=== PATIENT | male | born 1965 | race Caucasian/White ===

== ENCOUNTER 2020-05-16 23:16 | Observation (INO) | payer MEDICARE, MEDICAID, SELFPAY ==
--- NOTE | ~2020-05-16 | CT_ITS ---
EXAMINATION: CT brain wo con DATE: 05/17/2020 11:09 INDICATION: Headache. Alcohol withdrawal. TECHNIQUE: Computed tomography (CT) of the head was performed without intravenous contrast. The mA wa s adjusted according to patient size. Iterative reconstruction technique was employed. The dose-lengt h product was 605.33 mGy-cm. COMPARISON: Head CT 11/12/2014 FINDINGS: There is no intracranial hemorrhage, acute infarction, or abnormal intracranial mass lesion . The ventricles are normal in size. There are old blowout fractures of the medial jason of the orbit s. There are old fracture deformities of the nasal bones and left nasal process of maxilla. There is mild mucosal thickening in the ethmoid sinuses. The mastoid air cells are normal. IMPRESSION: 1. Normal brain. Reviewed, dictated and finalized at location B. OR NUCLEAR MEDICINE TECHNOLOGIST IMPRESSION: 1. Normal brain.
--- NOTE | ~2020-05-16 | US_ITS ---
EXAMINATION: US venous doppler LE EXAM DATE: 05/17/2020 10:35 INDICATION: Elevated d-dimer. Shortness of breath. TECHNIQUE: Multiple grayscale, color flow and Doppler images of the lower extremity deep venous syste ms bilaterally were obtained and reviewed. There is no prior study for comparison. FINDINGS: Right side: The right common femoral, femoral and profunda veins demonstrate normal color flow, respi ratory variation, augmentation and compressibility. Compressibility, color flow confirmed within the right popliteal, posterior tibial, peroneal, and greater saphenous veins. Left side: The left common femoral, femoral and profunda veins demonstrate normal color flow, respira tory variation, augmentation and compressibility. Compressibility, color flow confirmed within the l eft popliteal, posterior tibial, peroneal, and greater saphenous veins. IMPRESSION: 1. No lower extremity deep venous thrombosis bilaterally. Reviewed, dictated and finalized at location A. SCROLL SAW OPERATOR
--- NOTE | ~2020-05-16 | XR_ITS ---
XR chest 2V DATE: 05/17/2020 00:14 INDICATION: Shortness of breath, midline chest pain TECHNIQUE: AP and lateral views COMPARISON: 02/16/2015 portable AP chest FINDINGS: There is bilateral hyperinflation suggesting COPD. No pulmonary infiltrate or consolidation, pleural effusion or pulmonary vascular congestion or pneumo thorax. Normal heart size. No hilar or mediastinal enlargement. Mild levoscoliosis of the thoracic spine. IMPRESSION: Bilateral hyperinflation; no active cardiopulmonary disease Reviewed, dictated and finalized at location A. ATTENDANT
--- NOTE | ~2020-05-16 | CT_ITS ---
EXAMINATION: CTA chest PE protocol EXAM DATE: 05/17/2020 00:25 INDICATION: Chest pain, shortness of breath. TECHNIQUE: Spiral CTA of the chest (pulmonary arteries) was performed with 100 cc Omnipaque 350 intr avenous contrast injection. Images were acquired during the pulmonary arterial phase. Coronal maxi mum intensity projection 3D-reconstructions were created by the technologist on dedicated workstation . Axial, coronal and sagittal reformatted images were reviewed. The dose-length product (DLP) for t his examination was 408.39 mGy-cm. The exposure was tailored according to patient size (auto mA exp osure control), and iterative reconstruction (ASIR) was used as additional dose reduction technique. There is no prior study for comparison. FINDINGS: There is severe esophageal thickening for its entire mid and distal segments, extent sugges ts most likely acute esophagitis. No pulmonary emboli. No thoracic aortic dissection. The lungs are clear. There are no pleural or pericardial effusions. Tracheobronchial tree is patent. There i s no mediastinal, hilar or axillary lymphadenopathy. There is no pneumothorax. Heart normal in si ze. There is mild coronary arterial calcification, arterial sclerosis. Upper abdomen is unremarkab le. There is thoracic spondylosis without osteoblastic or osteolytic lesions identified. IMPRESSION: 1. Severe esophagitis. 2. No pulmonary emboli or acute airspace disease. Reviewed, dictated and finalized at location A. NSIVE CARE NURSE
[2020-05-16 23:13] VITALS: BP 142/105; PULSE 113; RESP 14; TEMP 36.9; O2SAT 92
--- NOTE | 2020-05-16 23:20 | ECG_ITS ---
Measurements Intervals [place] Rate: 112 P: 57 MA: 163 QRS: 37 QRSD: 96 T: 71 QT: 332 QTc: 455 Interpretive Statements SINUS TACHYCARDIA ABNORMAL ECG Electronically Signed On 05-17-2020 8:10:01 GI PHYSICIAN by Puneet Hinton D.O.
[2020-05-16 23:21] VITALS: PULSE 114; RESP 15
[2020-05-16 23:30] VITALS: PULSE 115; RESP 14; O2SAT 98; O2SAT 99
[2020-05-16 23:40] VITALS: BP 134/95; PULSE 112; RESP 17; O2SAT 96
[2020-05-16 23:45] VITALS: PULSE 111; RESP 14; O2SAT 100
--- NOTE | 2020-05-16 23:45 | PC.NURSE ---
Pt reports to RN I have not had a drink since 10 am. I had a half pint of vodka, there is no way I dont detox tonight. I am more than likely going to have a sz. I am going to need ativan or librium. Are you in with the doctor? Can you get me ativan? RN informed pt I would ask the doctor and see what happens. Pt. repeatedly asking RN if I am in with the doctor and can get him some ativan.
[2020-05-16 23:50] LABS: Basophils Absolute Auto 0.1 K/mm3 (0.0-0.1); Basophils Percent Auto 0.7 % (0.2-1.2); Eosinophils Percent Auto 0.2 % (0-4.4); Hematocrit 51.3 % (42.0-52.0); Hemoglobin 16.6 g/dL (14.0-18.0); Immature Granulocyte Absolute 0.05 K/mm3 (0.00-0.031); Immature Granulocyte Percent A 0.5 % (0-0.5); Lymphocytes Absolute Auto 2.58 K/mm3 (0.9-3.2); Lymphocytes Percent Auto 25.2 % (18.3-44.2); Mean Corpuscular HGB Conc 32.4 g/dl (32-36); Mean Corpuscular Hemoglobin 27.2 pg (26-34); Mean Corpuscular Volume 84.1 fl (80-100); Mean Platelet Volume 8.5 fl (7.4-10.4); Monocytes Absolute Auto 0.5 K/mm3 (0.1-0.6); Monocytes Percent Auto 5.3 % (2.6-8.5); Neutrophils Percent Auto 68.1 % (45.5-73.1); Platelet Count Result 224 k/mm3 (150-375); White Blood Count 10.2 K/mm3 (4.5-10.0)
[2020-05-17] VITALS (28 sets, daily range): BP systolic 104–147; BP diastolic 56–89; PULSE 85–129; RESP 13–33; TEMP 36–37.5; O2SAT 92–100; BMI 28.3; BMI 32.9
[2020-05-17 00:01] LABS: INR 0.9; Prothrombin Time 12.9 Seconds (11.1-14.7)
[2020-05-17 00:02] LABS: Partial Thromboplastin Time 28.5 SECONDS (22.3-36.8)
[2020-05-17 00:03] LABS: Anion Gap 16 mmol/L (8-16); Blood Urea Nitrogen 5 mg/dL (9-20); Calcium 9.6 mg/dL (8.4-10.2); Carbon Dioxide 34 mmol/L (22-30); Chloride 94 mmol/L (98-107); Estimated Glomerular Filt Rate > 60; Glucose 145 mg/dL (75-110); Potassium 3.2 mmol/L (3.4-5.0); Sodium 144 mmol/L (137-145)
[2020-05-17] MEDS: NITROGLYCERIN OINTMENT 1 INCH DOSE TRANSDERM (00:03)
[2020-05-17] MEDS: LORazepam (*CRX) 1 MG TABLET PO (00:03)
[2020-05-17 00:04] LABS: D Dimer 2.43 ug/mL (<0.48)
--- NOTE | 2020-05-17 00:06 | ED.CHESTPAIN ---
HPI - Chest Pain General Chief Complaint: Chest Pain Stated Complaint: CP Time Seen by Provider: 05/16/20 23:19 Source: patient Mode of arrival: ambulatory Limitations: no limitations History of Present Illness HPI narrative: Patient is a 54-year-old male complaining of chest pain, left chest, nonradiating, 7 out of 10, pressure that started yesterday. Patient also states that she is short of breath but it is nothing new since he has a history of COPD. Denies any fever, abdominal pain, nausea vomiting or diaphoresis. Admits to using cocaine few days ago. Related Data Allergies Allergy/AdvReac Type Severity Reaction Status Date / Time tomato Allergy Unknown Anaphylaxis Unverified 05/16/20 23:59 Review of Systems Review of Systems: All systems reviewed & are unremarkable except as noted in HPI and below Constitutional: Constitutional: Denies body ache(s), Denies chills, Denies excessive sweating, Denies fatigue, Denies fever(s), Denies headache(s), Denies lethargy, Denies malaise, Denies weakness and Denies weight loss Eyes: Eyes: Denies blurry vision, Denies change in vision and Denies loss of vision ENT: Denies dizziness, Denies ear discharge, Denies headache(s), Denies lip swelling, Denies epistaxis, Denies nasal congestion, Denies neck pain, Denies throat swelling and Denies tongue swelling Cardiovascular: Cardiovascular: Denies chest pain, Denies chest pain at rest, Denies chest pain with activity, Denies diaphoresis, Denies rapid heart rate, Denies edema, Denies irregular heart rhythm, Denies lightheadedness, Denies palpitations, Denies dyspnea and Denies dyspnea on exertion Respiratory: Respiratory: Denies chest congestion, Denies cough, Denies hemoptysis, Denies dyspnea and Denies dyspnea on exertion Gastrointestinal: Gastrointestinal: Denies abdominal pain, Denies melena, Denies hematochezia, Denies diarrhea, Denies nausea, Denies vomiting and Denies hematemesis Musculoskeletal: Musculoskeletal: Denies abnormal gait, Denies deformity, Denies joint swelling, Denies limited range of motion, Denies neck pain and Denies numbness Neurologic: Denies Abnormal speech present, Denies abnormal gait, Denies confusion, Denies dizziness, Denies headache(s), Denies focal weakness, Denies loss of vision, Denies numbness, Denies Other visual disturbances, Denies Sensory deficit (Neuro) and Denies weakness Psychiatric: Psychiatric: Denies confusion, Denies depression, Denies auditory hallucinations, Denies homicidal ideation and Denies suicidal ideation Endocrine: Endocrine: Denies cold intolerance, Denies excessive sweating, Denies fatigue, Denies heat intolerance and Denies palpitations Hematologic/Lymphatic: Hematologic/Lymphatic: Denies easy bleeding and Denies easy bruising Allergic/Immunologic: Allergic/Immunologic: Denies lip swelling, Denies throat swelling and Denies tongue swelling Exam Const: General: cooperative, healthy appearing, comfortable, no acute distress, well developed, alert and awake; No confusion Orientation/consciousness: oriented to person, oriented to place, oriented to time, patient oriented x3 and No confusion Limitations: no limitations HENMT: Head: normal to inspection, normocephalic and atraumatic Ears: hearing grossly normal bilaterally, TM normal on the right and TM normal on the left General nose exam: Normal external nose present, Normal nares present and No nasal discharge present Face and sinus: normal facial exam Mouth: Yes Normal oral and palatal mucosa present, Yes lip normal, Yes tongue normal and Yes oropharynx normal Throat: posterior oropharynx normal, tonsils normal and uvula midline Eyes: General: appearance normal, both eyes and all related structures Pupils: Equal, round and reactive pupils present EOM: EOMs intact bilaterally Neck: Neck: normal visual inspection, full ROM, no lymphadenopathy and no meningeal signs Chest: Chest palpation & inspection: normal inspection of the chest Resp
--- NOTE | 2020-05-17 00:12 | PC.NURSE ---
Pt. access in w/ patient. This RN heard pt. ask pt. access So you are registration, and there is no way you are in with the doctor? Do you think you could get me some ativan? RN informed pt. that the doctor ordered medication for him and it would be administered momentarily.
[2020-05-17 00:17] LABS: Troponin I < 0.012 ng/mL (0.000-0.034)
[2020-05-17] MEDS: LORazepam INJ (*CRX) 2 MG/ML VIAL 1 MG IV PUSH (01:49)
[2020-05-17] MEDS: SODIUM CHLORIDE 0.9% IV 1,000 ML 999 ML IV CONT (01:51)
[2020-05-17] MEDS: PROMETHAZINE HCL 25 MG/ML AMPUL 12.5 MG IV PUSH (01:52)
[2020-05-17 02:44] LABS: Troponin I < 0.012 ng/mL (0.000-0.034)
--- NOTE | 2020-05-17 02:50 | ADMGEN ---
This patient, Migue Hernández, was admitted to IMU Room 204-01. Patient/family oriented to hospital policies and general routines including ID bracelet, bed and alarms, visiting hours, pain management, procedures, bathroom and other care routines, personal items, smoking policy, room service/diet, and visiting hours. Information on how to activate the Rapid Response Team has been discussed. Patient/Family are encouraged to report perceived risks to care and to ask questions if they do not understand what they are told or what they should do.
[2020-05-17] MEDS: SODIUM CHLORIDE 0.9% IV 1,000 ML 150 ML IV CONT ×3 (03:18→23:22)
[2020-05-17 06:04] LABS: Troponin I < 0.012 ng/mL (0.000-0.034)
--- NOTE | 2020-05-17 07:56 | PM.IMHP ---
H&P: HPI History of Present Illness Date/Time: 05/17/20 07:56 Chief complaint: Chest Pain, N/V, Cocaine Abuse Narrative: Migue Hernández is a 54 year old male admitted due to chest pain and shortness of breath. He started experiencing this yesterday afternoon when he was carrying multiple loads of laundry at home. Today upon examination his chest pain is located within the left anterior chest wall, it is not aggravated with arm or shoulder movement, non-radiating, and worsens with activity. He is on room air and is not requiring oxygen, has not been short of breath during conversation or dyspneic when ambulating to the bathroom. He states when he is at rest in bed the pain is as low as 2/10 but then worsens with any activity including walking to the restroom to at least an 8 or 9/10. He has no history of known coronary artery disease, no history of a coronary catheterization, no history of PE or DVTs, and he has never seen a display department manager. Ordered cardiology consultation. His D-dimer was elevated at 2.43, INR 0.9, started therapeutic Lovenox every 12 hours. CTA showed severe esophagitis, with severe thickening, but no PE and no dissection, no pneumo, and lungs clear. Troponins x3 have been normal. His chest x-ray showed bilateral hyperinflation. White count last night was 10.2, no fevers noted. His EKG upon admission was sinus tach, word will repeat an EKG today. Upon review of monitoring specialist there has been no ectopy, sinus tach at a rate of 100-115. Migue does admit to experiencing alcohol withdrawal, stated that he was trying to withdrawal from alcohol at home on his own. His last known alcohol beverage was Thursday. He started withdrawing on Thursday at home. He stated that he had been having multiple episodes of vomiting and diarrhea at home due to his alcohol withdrawal. He stated that he was using Mylanta frequently at home. Denies any blood in his stools or his urine. He has had a seizure in the past during alcohol withdrawal. No known seizure activity noted at this time. Ordered Head CT and DVT dopplers of lower extremities. Started CIWA precautions, his magnesium=1.8 and phosphorus =2.8, and his potassium of 3.2 was replenished with oral. Ordered IV Protonix and IV Pepcid, p.r.n. oral Tums, and IV Zofran p.r.n.. Will advance diet as tolerated to bland. Currently no nausea or vomiting or diarrhea noted at this time. Consider GI consult if patient restarts N/V/D or if stool cultures are concerning. Review of Systems Review of Systems: All systems reviewed & are unremarkable except as noted in HPI and below Constitutional: Constitutional: Reports as per HPI, Reports body ache(s), Denies chills, Denies excessive sweating, Denies fatigue, Denies fever(s), Reports headache(s), Reports lethargy, Reports malaise, Denies weakness and Denies weight loss Eyes: Eyes: Reports as per HPI, Denies blurry vision, Denies change in vision and Denies loss of vision ENT: Reports system reviewed and no additional complaints, except as documented, Reports as per HPI, Denies dizziness, Denies ear discharge, Denies headache(s), Denies lip swelling, Denies epistaxis, Denies nasal congestion, Denies neck pain, Denies throat swelling and Denies tongue swelling Cardiovascular: Cardiovascular: Reports as per HPI, Reports chest pain, Reports chest pain at rest, Reports chest pain with activity, Denies diaphoresis, Reports rapid heart rate, Denies edema, Denies irregular heart rhythm, Denies lightheadedness, Denies palpitations, Denies dyspnea, Denies dyspnea on exertion, Denies orthopnea and Denies paroxysmal nocturnal dyspnea Respiratory: Respiratory: Reports as per HPI, Denies chest congestion, Denies cough, Denies hemoptysis, Denies pain on inspiration, Denies pain with cough, Denies dyspnea and Denies dyspnea on exertion Gastrointestinal: Gastrointestinal: Reports as per HPI, Denies abdominal pain, Denies melena, Denies hematochezia, Reports change in stool character, Den
[2020-05-17 08:38] LABS: Magnesium 1.8 mg/dL (1.6-2.3); Phosphorus 2.8 mg/dL (2.5-4.5)
[2020-05-17] MEDS: chlordiazePOXIDE (*CRX) 10 MG CAPSULE PO ×4 (09:33→13:41)
[2020-05-17] MEDS: ENOXAPARIN 100 MG/ML SYRINGE 85 MG SUB-Q (09:33)
[2020-05-17] MEDS: PANTOPRAZOLE SODIUM IV 40 MG VIAL IV PUSH (09:34)
[2020-05-17] MEDS: FAMOTIDINE 20 MG/2 ML VIAL IV PUSH ×2 (09:34→21:04)
[2020-05-17] MEDS: POTASSIUM CHLORIDE 20 MEQ TABLET.ER 40 MEQ PO ×2 (10:16→18:59)
[2020-05-17 10:26] LABS: Alanine Aminotransferase 61 U/L (4-50); Albumin Level 3.6 g/dL (3.5-5.1); Alkaline Phosphatase 79 U/L (38-126); Aspartate Amino Transferase 63 U/L (17-59); Bilirubin,Total 0.7 mg/dL (0.2-1.3)
[2020-05-17 10:41] LABS: Lipase 55 U/L (23-300)
--- NOTE | 2020-05-17 11:28 | PM.CNCAR ---
Assessment and Plan Assessment and plan (1) Chest pain: Qualifiers: Chest pain type: unspecified Qualified Code(s): R07.9 - Chest pain, unspecified Code(s): R07.9 - Chest pain, unspecified Status: Acute Assessment and Plan: Atypical, constant for several days worse with palpation, deep breathing, cough and activity. Negative troponin x3. EKG without ischemic changes. Suspect musculoskeletal and/or GI etiology having presented with onset associated with nausea vomiting and evidence of severe esophagitis on CT. No PE. - Discontinue systemic anticoagulation. - DVT prophylaxis. - 2D echocardiogram. Tachycardia likely secondary to ETOH withdrawal, pain. Will further assess for LV function, valve pathology pulmonary pressures. No evidence for acute pericardial inflammatory process by exam, EKG or clinical history. - No indication for ischemic evaluation at this time. - If echocardiogram without significant pathology will see patient on an as-needed basis. Please do not hesitate to contact us with any additional questions or concerns. Recommendation to follow after review of echocardiogram as appropriate. (2) Alcohol abuse: Code(s): F10.10 - Alcohol abuse, uncomplicated Status: Acute Assessment and Plan: alcohol/ drug rehabilitation, abstinence. Per primary service. Drug and alcohol screen pending. Withdrawal management/observation per primary service. (3) Esophagitis: Code(s): K20.90 - Esophagitis, unspecified without bleeding Status: Acute Assessment and Plan: Per primary service. PPI. GI consultation. (4) Shortness of breath: Code(s): R06.02 - Shortness of breath Status: Acute Assessment and Plan: Patient with intermittent productive cough. Suspect underlying COPD. He is not in decompensated heart failure. (5) Nausea & vomiting: Qualifiers: Vomiting Intractability: non-intractable Vomiting type: unspecified Qualified Code(s): R11.2 - Nausea with vomiting, unspecified Code(s): R11.2 - Nausea with vomiting, unspecified Status: Acute Assessment and Plan: Resolved. lipase unremarkable, mild LFT elevation. (6) Nicotine dependence: Code(s): F17.200 - Nicotine dependence, unspecified, uncomplicated Status: Acute Assessment and Plan: Smoking cessation counseling (7) HTN (hypertension), benign: Code(s): I10 - Essential (primary) hypertension Status: Acute Assessment and Plan: Stable. History of Present Illness History of Present Illness Consult date/time: date of service: 05/17/20 11:28 This is a cardiology consultation at the request of Kristen Robin NP for our opinion regarding complaints of chest pain. Requesting physician: Kristen Robin NP Consult reason: chest pain Reason For Visit: Chest Pain, N/V, Cocaine Abuse Narrative: Patient is a 54-year-old male with a past medical history significant for alcohol abuse, reported hypertension who presented to the emergency depart with complaints of several days of left-sided chest pain worse with movement, deep breathing, coughing which began after excessive nausea vomiting prior to admission. Patient has chest pain feels like a pressure and/or intermittent sharpness radiating to the left arm that has been constant for least the past 3 days. He does not admit to exacerbation with walking unless he is caring an object. He admits to exertional dyspnea, intermittent cough but denies fevers, chills or recent illnesses. Patient states he has been drinking 4-5 fifths and one case of beer daily and more heavily of late. He smokes 1 pack cigarettes daily but denies illicit substance abuse. In the ER D-dimer was noted to be elevated. CT angiogram revealed no PE, dissection or pneumonia. There was severe esophagitis with associated severe thickening however. Serial troponins have been negative x3 and h
[2020-05-17] MEDS: NICOTINE (*PBKC) 14 MG PATCH 1 PATCH TRANSDERM (13:38)
[2020-05-17] MEDS: ONDANSETRON INJ 4 MG/2 ML VIAL IV PUSH (13:41)
--- NOTE | 2020-05-17 14:00 | ECG_ITS ---
Measurements Intervals [place] Rate: 101 P: 57 MI: 145 QRS: 72 QRSD: 84 T: 70 QT: 352 QTc: 458 Interpretive Statements SINUS TACHYCARDIA BORDERLINE ECG Electronically Signed On 05-17-2020 14:59:15 WIRE BRUSHER by Puneet Hinton D.O.
[2020-05-17] MEDS: VENLAFAXINE HCL XR 75 MG CAP.ER.24H 150 MG PO (18:58)
[2020-05-17] MEDS: chlordiazePOXIDE (*CRX) 25 MG CAPSULE PO (18:58)
[2020-05-17] MEDS: QUEtiapine FUMARATE 100 MG TABLET PO (18:59)
[2020-05-17 19:18] LABS: Add Urine Microscopic? YES; Appearance Urine Cloudy (Clear); Bacteria Urine Trace /hpf; Bilirubin Urine Negative (Negative); Blood Urine Negative (Negative); Color Urine Amber (Yellow); Glucose Urine UA Negative (Negative); Ketones Urine Trace mg/dL (Negative); Leukocyte Esterase Ur Negative LEU/UL (Negative); Mucus Urine Heavy /lpf; Nitrate Urine Negative (Negative); Protein Urine 1+ mg/dL (Negative); RBC Urine 0-2 /hpf (0-2); Specific Grav Ur 1.028 (1.001-1.035); Squamous Epithelial Cell Urine Rare /hpf (Few); WBC Urine 0-3 /hpf
[2020-05-17 19:48] LABS: Barbiturate Screen Urine Negative (Negative); Benzodiazepines Screen Urine Positive (Negative)
[2020-05-17 19:50] LABS: Amphetamine Screen Urine Negative (Negative); Cannabinoid Screen Urine Negative (Negative); Cocaine Screen Urine Negative (Negative); Methadone Screen Urine Negative (Negative); Opiate Screen Urine Negative (Negative); Phencyclidine Screen Urine Negative (Negative)
[2020-05-17 20:49] LABS: IFOB Positive Control Positive; Immunochemical Fecal Occult Bl Negative (N)
[2020-05-18] VITALS (8 sets, daily range): BP systolic 111–130; BP diastolic 69–85; PULSE 73–100; RESP 13–18; TEMP 36–36.6; O2SAT 94–98
[2020-05-18] MEDS: chlordiazePOXIDE (*CRX) 25 MG CAPSULE PO (03:32)
[2020-05-18 05:52] LABS: Hematocrit 36.4 % (42.0-52.0); Hemoglobin 11.5 g/dL (14.0-18.0); Mean Corpuscular HGB Conc 31.6 g/dl (32-36); Mean Corpuscular Hemoglobin 27.6 pg (26-34); Mean Corpuscular Volume 87.5 fl (80-100); Mean Platelet Volume 9.4 fl (7.4-10.4); Platelet Count Result 134 k/mm3 (150-375); Red Blood Count 4.16 M/mm3 (4.6-6.20); Red Cell Distribution Width 15.3 % (11.5-14.5)
[2020-05-18] MEDS: chlordiazePOXIDE (*CRX) 25 MG CAPSULE 50 MG PO ×2 (05:52→12:41)
[2020-05-18] MEDS: SODIUM CHLORIDE 0.9% IV 1,000 ML 150 ML IV CONT (05:53)
[2020-05-18 06:22] LABS: Anion Gap 3 mmol/L (8-16); Bilirubin,Total 1.4 mg/dL (0.2-1.3); Carbon Dioxide 31 mmol/L (22-30); Chloride 103 mmol/L (98-107); Estimated CRCL calculation 141 ml/min; Estimated Glomerular Filt Rate > 60; Potassium 3.2 mmol/L (3.4-5.0); Sodium 137 mmol/L (137-145)
[2020-05-18 06:28] LABS: Alanine Aminotransferase 38 U/L (4-50); Alkaline Phosphatase 70 U/L (38-126); Aspartate Amino Transferase 35 U/L (17-59); Blood Urea Nitrogen 5 mg/dL (9-20); Calcium 7.4 mg/dL (8.4-10.2); Glucose 94 mg/dL (75-110)
--- NOTE | 2020-05-18 09:02 | ECHO_ITS ---
Patient Info Name: Migue Hernández Age: 54 years : 1965 Gender: Male Ht: 64 in Wt: 184 lbs BSA: 1.97 m2 HR: 96 bpm BP: 111 / 73 mmHg Heart Rhythm: Sinus Rhythm Technical Quality: Good Exam Date: 05/18/2020 10:44 AM Exam Location: [facility] Pul[facility] Patient Status: Inpatient Admit Date: 05/17/2020 Staff Ordering Physician: Grayson Rasmussen MD Recruiting Internship: Anni Willams RDCS Attending Provider: Ulysses Ramos MD Referring Physician: Grady BALLESTEROS; Exam Type: CA echo doppler color flow Study Info Indications R07.9 - Chest pain, unspecified Complete two-dimensional, color flow and Doppler transthoracic echocardiogram is performed. Summary 1. Complete two-dimensional, color flow and Doppler transthoracic echocardiogram is performed. 2. Left ventricular chamber dimension is normal. 3. Left ventricular systolic function is normal, estimated at 65-70%. 4. No valvular pathology. Left Ventricle Left ventricular chamber dimension is normal. Left ventricular systolic function is normal, estimated at 65-70%. The left ventricular diastolic function is grade I diastolic dysfunction. Right Ventricle Right ventricular chamber dimension is normal. Left Atria Left atrial chamber dimension is normal. Right Atria Right atrial chamber dimension is normal. Aortic Valve The aortic valve is normal. Pulmonic Valve The pulmonic valve is not well visualized. Mitral Valve The mitral valve has normal leaflets. Tricuspid Valve The tricuspid valve leaflets are normal. Pericardium/Pleural The pericardium appears normal. Aorta The aortic root size at the sinus of Valsalva is normal. Left Ventricular Outflow Tract Name Value Normal LVOT 2D LVOT Diameter 2.0 cm LVOT Doppler LVOT Peak Gradient 6 mmHg LVOT Mean Gradient 5 mmHg LVOT VTI 24 cm LVOT VTI/AV VTI Ratio 0.8 LVOT Stroke Volume 77 ml LVOT CO 20.3 l/min LVOT CI 10.3 l/min/m2 Pulmonic Valve Name Value Normal PV Doppler PV Peak Gradient 2 mmHg Mitral Valve Name Value Normal MV Doppler MV Decel Webster 550 cm/s2 MV PHT 46 ms MV Area (PHT) 4.8 cm2 4.0-5.0 MV Diastolic Function MV E Peak Velocity 87 cm/s
[2020-05-18] MEDS: NICOTINE (*PBKC) 14 MG PATCH 1 PATCH TRANSDERM (09:06)
[2020-05-18] MEDS: FAMOTIDINE 20 MG/2 ML VIAL IV PUSH (09:07)
[2020-05-18] MEDS: ENOXAPARIN 40 MG/0.4 ML SYRINGE SUB-Q (09:07)
--- NOTE | 2020-05-18 09:29 | PM.PNCARD ---
Progress Note: A&P Assessment and Plan (1) Chest pain: Qualifiers: Chest pain type: unspecified Qualified Code(s): R07.9 - Chest pain, unspecified Code(s): R07.9 - Chest pain, unspecified Status: Acute Assessment and Plan: Atypical, constant for several days worse with palpation, deep breathing, cough and activity. Negative troponin x3. EKG without ischemic changes. Suspect musculoskeletal and/or GI etiology having presented with onset associated with nausea vomiting and evidence of severe esophagitis on CT. No PE. 2D echo pending of no significant abnormalities follow-up with PCP as outpatient. No further cardiac recommendations at this time. Disposition per hospitalist service. If echo unremarkable will sign off. Please do not hesitate to contact us with any questions or concerns. Patient stable from cardiac perspective at this time.. (2) Alcohol abuse: Code(s): F10.10 - Alcohol abuse, uncomplicated Status: Acute Assessment and Plan: alcohol/ drug rehabilitation, abstinence. Per primary service. Drug and alcohol screen pending. Withdrawal management/observation per primary service. (3) Esophagitis: Code(s): K20.90 - Esophagitis, unspecified without bleeding Status: Acute Assessment and Plan: Per primary service. PPI. GI consultation As appropriate. (4) Shortness of breath: Code(s): R06.02 - Shortness of breath Status: Acute Assessment and Plan: Patient with intermittent productive cough. Suspect underlying COPD. He is not in decompensated heart failure. (5) Nausea & vomiting: Qualifiers: Vomiting Intractability: non-intractable Vomiting type: unspecified Qualified Code(s): R11.2 - Nausea with vomiting, unspecified Code(s): R11.2 - Nausea with vomiting, unspecified Status: Acute Assessment and Plan: Resolved. lipase unremarkable, mild LFT elevation. (6) Nicotine dependence: Code(s): F17.200 - Nicotine dependence, unspecified, uncomplicated Status: Acute Assessment and Plan: Smoking cessation counseling (7) HTN (hypertension), benign: Code(s): I10 - Essential (primary) hypertension Status: Acute Assessment and Plan: Stable. Subjective Date/time seen: date of service: 05/18/20 09:29 Follow-up for complaints of chest pain feeling better. No significant chest pain. Admitting limited more, tolerating liquids. No fevers or shortness of breath. No nausea vomiting. Review of Systems Review of Systems: All systems reviewed & are unremarkable except as noted in HPI and below Constitutional: Constitutional: Reports as per HPI, Reports no additional constitutional complaints, Reports fatigue, Denies headache(s) and Reports weakness Eyes: Eyes: Reports as per HPI and Reports no additional eye complaints ENT: Reports system reviewed and no additional complaints, except as documented, Reports as per HPI and Denies headache(s) Cardiovascular: Cardiovascular: Reports as per HPI, Reports no additional cardiovascular complaints, Reports chest pain, Denies diaphoresis, Denies leg edema, Reports dyspnea and Reports dyspnea on exertion Respiratory: Respiratory: Reports as per HPI, Reports no additional respiratory complaints, Reports cough, Reports dyspnea, Reports dyspnea on exertion and Reports wheezing Gastrointestinal: Gastrointestinal: Reports as per HPI, Reports no additional gastrointestinal complaints, Reports abdominal pain, Reports melena, Denies hematochezia, Reports heartburn, Reports diarrhea, Reports nausea, Reports vomiting and Denies hematemesis Genitourinary: Genitourinary: Reports no additional male genitourinary complaints, Reports as per HPI, Denies hematuria and Denies dysuria Musculoskeletal: Musculoskeletal: Reports no additional musculoskeletal complaints, Reports as per HPI and Reports arthralgias Integumentary/Breasts:
--- NOTE | 2020-05-18 12:18 | PM.DS ---
DS: Admitting Diagnosis Admitting Diagnosis Admitting Diagnosis: Chest Pain, N/V, Cocaine Abuse DS: Discharge Diagnosis Discharge Diagnosis (1) Chest pain: Qualifiers: Chest pain type: unspecified Qualified Code(s): R07.9 - Chest pain, unspecified Code(s): R07.9 - Chest pain, unspecified Status: Acute Assessment and Plan: Patient presents with chest pain that was palpable, persistent and worse with cough. CXR showing bilateral hyperinflation; no active cardiopulmonary disease. D-dimer 2.43 so CTA ordered. CTA chest showing severe esophagitis but no PE or acute airspace disease. Trop negative x3. EKG showing no acute ischemic changes. Echo showing EF 65-70% with grade I diastolic dysfunction. Cardiology involved but did not feel any further workup was required. (2) Nausea & vomiting: Qualifiers: Vomiting Intractability: non-intractable Vomiting type: unspecified Qualified Code(s): R11.2 - Nausea with vomiting, unspecified Code(s): R11.2 - Nausea with vomiting, unspecified Status: Acute Assessment and Plan: Patient presented with nausea and vomiting. He was provided antiemetics as needed. He was given IV fluids. Lipase normal. AST/ALT mildly elevated felt more likely related to his alcoholism. Repeat AST/ALT normalized. Symptoms improved. Diet advanced. He was started on protonix. (3) HTN (hypertension), benign: Code(s): I10 - Essential (primary) hypertension Status: Acute Assessment and Plan: BP elevated on admission related to above. BP became better controlled. No anti-hypertensives listed on his home med list. He did not require medication at this time (4) Nicotine dependence: Code(s): F17.200 - Nicotine dependence, unspecified, uncomplicated Status: Acute Assessment and Plan: Patient smokes 1-2 packs per day. He was educated about the benefits of smoking cessation. (5) Esophagitis: Code(s): K20.90 - Esophagitis, unspecified without bleeding Status: Acute Assessment and Plan: Noted by CT scan. Probably the etiology of his chest pain. He was treated with protonix and discharged home on the same. Plan for him to follow up with GI as outpatient. (6) Alcohol abuse: Code(s): F10.10 - Alcohol abuse, uncomplicated Status: Acute Assessment and Plan: Patient was started on Librium. He was encouraged to stop drinking. He was monitored with the CIWA protocol but no evidence of alcohol withdrawal. He was started on thiamine and folate. Home with the same. Also home with Librium taper. he wants to stop drinking. Information provided about AA but patient already aware and will contact AA when he returns home. DS: Summary Hospital Course Reason for hospitalization: 54yo male with alcoholism here for n/v and chest pain. Please see H&P for details. Hospital Course: As above. Status at Discharge Cognitive/behavioral status at discharge: PATIENT IS STABLE FOR DISCHARGE Time Spent with Patient Time attestation: Total time spent providing and/or coordinating discharge services:34 minutes Time spent: Greater than 30 minutes Exam Narrative: Exam Narrative: He feels better. no furhter CP. no n/v. Toelrating diet. Drinks a case of beer and pint vodka daily. He plans to stop drinking and do AA by phone. AF 97.9 130/83 99 13 98% ra Gen - NARD sitting up at the side of the bed Chest - CTA bilaterally, nml RR CV - RRR S1/S2; Tele showing no significant dysrhythmias Abd - Soft, NT/ND, Positive BS Ext - No pedal edema Neuro - Alert and oriented. Nonfocal exam. Psych - Nml mood and affect Skin - Warm and dry DS: Data Data Completed and Pending Labs on day of discharge: Labs from last 24 hours 05/18/20 05/18/20 05/17/20 04:29 04:29 18:36 WBC 4.0 L RBC 4.16 L Hgb 11.5 L D Hct 36.4 L MCV 87.5 MCH 27.6 MCHC 31.6
[2020-05-18] MEDS: THIAMINE HCL 100 MG TABLET PO (12:42)
[2020-05-18] MEDS: FOLIC ACID 1 MG TABLET PO (12:42)
[2020-05-21 10:55] LABS: Methyl Alcohol Level None Detected (None Detected)
== END 2020-05-18 14:23 | disposition home or self-care (01) ==
LOC: ANHED 05-17 01:35 → ANHIMU 05-17 02:14
PROVIDERS: Nurse Practitioner; Admitting Provider Family Medicine; Emergency Provider Emergency Medicine; PCP Internal Medicine; Visit Provider Internal Medicine
DX: R07.9 Chest pain, unspecified (principal); R06.02 Shortness of breath; E86.0 Dehydration; R11.2 Nausea with vomiting, unspecified; F14.10 Cocaine abuse, uncomplicated; F10.231 Alcohol dependence with withdrawal delirium; F17.210 Nicotine dependence, cigarettes, uncomplicated; I10 Essential (primary) hypertension; K20.90 Esophagitis, unspecified without bleeding; Z79.899 Other long term (current) drug therapy
CPT/HCPCS: 36415; 70450; 71046; 71275; 80048; 80053; 80076; 80307; 81001; 82274; 83690; 83735; 84100; 84484; 84600; 85025; 85027; 85380; 85610; 85730; 87045; 87046; 87177; 87209; 87269; 87272; 87324; 87427; 89055; 93005; 93306; 93970; 96361; 96372; 96374; 96375; 96376; 99285; A9270; C9113; G0378; J1650; J2060; J2405; J2550; J7030; Q9967

== ENCOUNTER 2020-09-12 21:27 | Observation (INO) | payer MEDICARE, MEDICAID, SELFPAY ==
[2020-09-12] VITALS (8 sets, daily range): BP systolic 132–161; BP diastolic 91–107; PULSE 110–120; RESP 14–29; TEMP 36.2; O2SAT 86–94
--- NOTE | ~2020-09-12 | XR_ITS ---
EXAMINATION: XR chest 2V 09/12/2020 22:31 INDICATION: Chest pain. COPD. Smoker. PROCEDURE: 2 view chest COMPARISON: Comparison to multiple prior studies sequentially, with oldest reviewed study dated 08/26. FINDINGS: The lungs are clear. The cardiomediastinal silhouette is within normal limits. There are no pleural effusions. There is no pneumothorax suspected. IMPRESSION: 1: NO ACUTE CARDIOPULMONARY DISEASE. Reviewed, dictated and finalized at location A. OL CROSSING GUARD
--- NOTE | ~2020-09-12 | US_ITS ---
EXAMINATION: US venous doppler [facility] DATE: 09/13/2020 10:19 INDICATION: Chest pain. TECHNIQUE: Grayscale ultrasound images without and with compression and Doppler ultrasound images of the bilateral lower extremity veins were obtained. COMPARISON: Ultrasound 05/17/2020 FINDINGS: The visualized portions of right common femoral vein, profunda (deep) femoral vein, femoral vein, pop liteal vein, peroneal veins, posterior tibial veins, and greater saphenous vein outflow are patent. The visualized portions of left common femoral vein, profunda femoral vein, femoral vein, popliteal v ein, peroneal veins, posterior tibial veins, and greater saphenous vein outflow are patent. IMPRESSION: 1. No deep venous thrombosis. Reviewed, dictated and finalized at location A. HEMIST
--- NOTE | ~2020-09-12 | CT_ITS ---
EXAMINATION: CTA chest PE abdomen pel DATE: 09/13/2020 00:14 INDICATION: Chest pain and shortness of breath, epigastric pain TECHNIQUE: Computed tomography angiography (CTA) of the chest was performed with 100 mL Omnipaque-350 intravenous contrast timed to evaluate the pulmonary arteries. Subsequent postcontrast images of the abdomen and pelvis are obtained. Coronal maximum intensity projection 3D-reconstructions were create d by the technologist. The dose-length product (DLP) was 1069.56 mGy-cm. Automated exposure control a nd iterative reconstruction technique were employed. COMPARISON: 05/17/2020, 08/25/2014 FINDINGS: CTA CHEST: The pulmonary arteries are well-opacified. There is no pulmonary embolism. Scarring is not ed in the lung apices. There is mild emphysema. Patchy groundglass opacities are present throughout t he lungs. There is no pleural effusion or pneumothorax. The heart size is normal. There is mild media stinal lymphadenopathy. A small sliding hiatal hernia is present. There is circumferential wall thick ening of the distal esophagus. There is moderate thoracic spondylosis. ABDOMEN/PELVIS CT: The gallbladder is surgically absent. The liver, spleen, pancreas, and adrenal gla nds are normal. Cysts of the kidneys measure up to 10 mm on the left. There is a chronically enlarged 11 mm gastrohepatic ligament lymph node. There is no free intraperitoneal gas or evidence of bowel o bstruction. There is calcified atherosclerosis of the aorta and many of the other arteries. The appen janice is normal. Colonic diverticulosis is noted. There is severe lumbar spondylosis at L4-5. There are 3 mm of retrolisthesis of L5 on S1. IMPRESSION: 1. Patchy groundglass opacities of the lungs which could reflect atypical pneumonia such as COVID 19 pneumonia or possibly other infection/inflammation. 2. Wall thickening of the distal esophagus which could reflect esophagitis. Consider direct visualiza tion. 3. Mild mediastinal lymphadenopathy, likely reactive. Reviewed, dictated and finalized at location A. NG MATERIAL WEIGHER IMPRESSION: 1. Patchy groundglass opacities of the lungs which could reflect atypical pneum onia such as COVID 19 pneumonia or possibly other infection/inflammation. 2. Wall thickening of the distal esophagus which could reflect esophagitis. Con writing manager direct visualization. 3. Mild mediastinal lymphadenopathy, likely reactive.
--- NOTE | 2020-09-12 22:12 | ED.NAVMDI ---
HPI - Nausea/Vomiting/Diarrhea General Chief complaint: Nausea/Vomiting/Diarrhea <SAROJ Gordon Last Filed: 09/13/20 01:50> Stated complaint: Vomiting Blood <SAROJ Gordon Last Filed: 09/13/20 01:50> Time Seen by Provider: 09/12/20 21:55 <SAROJ Gordon Last Filed: 09/13/20 01:50> Source: patient <SAROJ Gordon Last Filed: 09/13/20 01:50> Mode of arrival: ambulatory <SAROJ Gordon Last Filed: 09/13/20 01:50> Limitations: intoxication <SAROJ Gordon Last Filed: 09/13/20 01:50> History of Present Illness HPI Narrative: This is a 54 year old male that presents to the ER for hematemesis. Reports over the last couple of days he has noted bright red blood in his vomit. Associated with burning epigastric abdominal pain that radiates into his chest. Does report history of alcohol abuse. Reports he drinks a couple of beers and a pint of vodka daily. Reports he has been taking his pantoprazole as prescribed. Does report cough and shortness of breath, patient is a current smoker. Denies fever. <Salima Urban PA-C - Last Filed: 09/13/20 01:50> Related Data Home medications: Home Medications Medication Instructions Recorded Confirmed quetiapine 100 mg PO QAM 05/17/20 09/13/20 venlafaxine 150 mg PO QPM 05/17/20 09/13/20 quetiapine 300 mg PO QPM 09/12/20 09/13/20 <SAROJ Gordon Last Filed: 09/13/20 01:50> Allergies/Adverse reactions: Allergies Allergy/AdvReac Type Severity Reaction Status Date / Time tomato Allergy Unknown Anaphylaxis Verified 09/12/20 23:49 <SAROJ Gordon Last Filed: 09/13/20 01:50> Review of Systems Review of Systems: Narrative: CONSTITUTIONAL: Denies fever CARDIOVASCULAR: Reports chest pain RESPIRATORY: Reports cough and dyspnea. GASTROINTESTINAL: Reports abdominal pain, nausea, vomiting GENITOURINARY: Denies dysuria <Salima Urban PA-C - Last Filed: 09/13/20 01:50> All systems reviewed & are unremarkable except as noted in HPI and below <Salima Urban PA-C - Last Filed: 09/13/20 01:50> PMFSH Past Medical History Medical History: Medical History (Updated 09/13/20 @ 04:03 by Nettie Recio DO) Alcohol abuse Alcohol withdrawal Chronic respiratory failure with hypoxia, on home O2 therapy Cocaine abuse Depression Sees Dr. Watson at [facility] in [place]. HTN (hypertension), benign Nicotine dependence Normal colonoscopy Done in 2019 at [facility] <Salima Urban PA-C - Last Filed: 09/13/20 01:50> Surgical History Surgical History: Surgical History History of cholecystectomy Done in 2019 at [facility] <Salima Urban PA-C - Last Filed: 09/13/20 01:50> Family History Family History: Family History Sibling Unknown family medical history States that his blood relative sister has no medical concerns and takes no medicine Other Adopted <Salima Urban PA-C - Last Filed: 09/13/20 01:50> Social History Social History: Social History Smoking packs per day: 2 Smoking cigarettes per day: 40.0 Years smoked: 40 Smoking pack-years: 80.00 Smoking status: Current every day smoker Tobacco type: cigarettes Alcohol intake: current Substance use: current Substance use type: crack/cocaine Gender identity (if verbalized by the patient): Male Spiritual care concerns: No <Salima Urban PA-C - Last Filed: 09/13/20 01:50> Exam Narrative: Exam Narrative: GENERAL: Intoxicated, well-nourished, and in no acute distress. HEAD: Normocephalic, atraumatic. EYES: EOMI. ENT: Nares clear, no rhinorrhea or epistaxis. Mucous membranes moist. Oropharynx without tonsillar hypertrophy exudate or other lesions. NECK: Supple. No adenopathy
[2020-09-12] MEDS: SODIUM CHLORIDE 0.9% IV 1,000 ML 999 ML IV CONT (22:18)
[2020-09-12] MEDS: PANTOPRAZOLE SODIUM IV 40 MG VIAL 80 MG IV PUSH (22:19)
--- NOTE | 2020-09-12 22:19 | ECG_ITS ---
Measurements Intervals [place] Rate: 112 P: 43 TX: 144 QRS: 85 QRSD: 100 T: 59 QT: 340 QTc: 464 Interpretive Statements SINUS TACHYCARDIA BASELINE ARTIFACT- V3 ABNORMAL ECG Electronically Signed On 09-13-2020 7:06:20 [employer]ING [employer]ARD[employer]SEM[employer] by Puneet Hinton D.O.
[2020-09-12 22:20] LABS: Basophils Absolute Auto 0.1 K/mm3 (0.0-0.1); Basophils Percent Auto 0.7 % (0.2-1.2); Eosinophils Percent Auto 0.2 % (0-4.4); Hematocrit 44.1 % (42.0-52.0); Hemoglobin 13.8 g/dL (14.0-18.0); Immature Granulocyte Absolute 0.06 K/mm3 (0.00-0.031); Immature Granulocyte Percent A 0.7 % (0-0.5); Lymphocytes Absolute Auto 1.87 K/mm3 (0.9-3.2); Lymphocytes Percent Auto 20.6 % (18.3-44.2); Mean Corpuscular HGB Conc 31.3 g/dl (32-36); Mean Corpuscular Hemoglobin 26.5 pg (26-34); Mean Corpuscular Volume 84.6 fl (80-100); Mean Platelet Volume 8.3 fl (7.4-10.4); Monocytes Absolute Auto 0.5 K/mm3 (0.1-0.6); Monocytes Percent Auto 5.7 % (2.6-8.5); Neutrophils Absolute Auto 6.6 K/mm3 (1.3-6.7); Neutrophils Percent Auto 72.1 % (45.5-73.1); Platelet Count Result 268 k/mm3 (150-375); Red Blood Count 5.21 M/mm3 (4.6-6.20); Red Cell Distribution Width 16.2 % (11.5-14.5); White Blood Count 9.1 K/mm3 (4.5-10.0)
[2020-09-12] MEDS: ONDANSETRON INJ 4 MG/2 ML VIAL IV PUSH (22:20)
[2020-09-12 22:25] LABS: Add Urine Microscopic? YES; Appearance Urine Clear (Clear); Bacteria Urine Trace /hpf; Bilirubin Urine Negative (Negative); Blood Urine 1+ (Negative); Color Urine Straw (Yellow); Glucose Urine UA Negative (Negative); Ketones Urine Negative (Negative); Leukocyte Esterase Ur Negative LEU/UL (Negative); Nitrate Urine Negative (Negative); Protein Urine 1+ mg/dL (Negative); RBC Urine 0-2 /hpf (0-2); Specific Grav Ur 1.006 (1.001-1.035); Urobilinogen Urine Negative mg/dL (<2.0); WBC Urine 0-3 /hpf
[2020-09-12 22:30] LABS: INR 0.9; Prothrombin Time 13.2 Seconds (11.1-14.7)
[2020-09-12 22:31] LABS: Partial Thromboplastin Time 30.6 SECONDS (22.3-36.8)
[2020-09-12 22:32] LABS: Ethanol 262 mg/dL (<10)
[2020-09-12 22:33] LABS: Alanine Aminotransferase 22 U/L (4-50); Albumin Level 4.6 g/dL (3.5-5.1); Alkaline Phosphatase 100 U/L (38-126); Anion Gap 14 mmol/L (8-16); Aspartate Amino Transferase 34 U/L (17-59); Bilirubin,Total 0.5 mg/dL (0.2-1.3); Blood Urea Nitrogen 3 mg/dL (9-20); Calcium 8.9 mg/dL (8.4-10.2); Carbon Dioxide 29 mmol/L (22-30); Chloride 101 mmol/L (98-107); Estimated CRCL calculation 118 ml/min; Estimated Glomerular Filt Rate > 60; Glucose 136 mg/dL (75-110); Lipase 62 U/L (23-300); Potassium 3.9 mmol/L (3.4-5.0); Sodium 144 mmol/L (137-145)
[2020-09-12 22:39] LABS: Barbiturate Screen Urine Negative (Negative); Benzodiazepines Screen Urine Negative (Negative)
[2020-09-12 22:42] LABS: Amphetamine Screen Urine Negative (Negative); Cannabinoid Screen Urine Negative (Negative); Cocaine Screen Urine Negative (Negative); Methadone Screen Urine Negative (Negative); Opiate Screen Urine Negative (Negative); Phencyclidine Screen Urine Negative (Negative)
[2020-09-12 22:47] LABS: Troponin I < 0.012 ng/mL (0.000-0.034)
[2020-09-12 23:45] LABS: D Dimer 0.55 ug/mL (<0.48)
[2020-09-13] VITALS (12 sets, daily range): BP systolic 112–146; BP diastolic 66–94; PULSE 77–110; RESP 12–20; TEMP 36.9–37.7; O2SAT 92–98; BMI 26.9
[2020-09-13] MEDS: THIAMINE HCL INJ 100 MG, FOLIC ACID INJ 1 MG, MULTIVITAMINS-12 INJ VIAL 1 5 ML, MULTIVI... IV CONT (00:35)
--- NOTE | 2020-09-13 02:08 | ADMGEN ---
This patient, Migue Hernández, was admitted to [facility] Room 312-01. Patient/family oriented to hospital policies and general routines including ID bracelet, bed and alarms, visiting hours, pain management, procedures, bathroom and other care routines, personal items, smoking policy, room service/diet, and visiting hours. Information on how to activate the Rapid Response Team has been discussed. Patient/Family are encouraged to report perceived risks to care and to ask questions if they do not understand what they are told or what they should do.
--- NOTE | 2020-09-13 02:17 | PM.IMHP ---
H&P: HPI History of Present Illness Date/Time: 09/13/20 02:17 Chief Complaint: Vomiting blood Narrative: 54-year-old male with a past medical history of COPD on chronic home O2 therapy, chronic tobacco abuse, and chronic alcoholism who presented to the ER ambulatory from home with patient report of hematemesis. He reports that he called his primary care provider on Thursday and was recommended that he come to the ER. He waited until Thursday night to present to the ER. That he has been having vomiting for couple of days. He reported that initially it was not that much blood in his emesis. However, he noticed increased blood is in emesis has a continued. The patient was witnessed to have an episode of emesis in the ER that was mostly green in color with some blood-tinged. The emesis is accompanied by burning epigastric abdominal pain that radiates into his chest and right upper quadrant. He reports that the pain in his right upper quadrant is 7/10 in intensity and is worse with palpation. He has not tried to take any medications for his pain. His other associated symptoms included irritability, tremors and palpitations. He he assumed that these other symptoms were due to not drinking enough. He was still able to drink enough alcohol to stave off alcohol withdrawal. His last drink was around 7:00 p.m. prior to coming to the ER around 9:00 p.m.. His alcohol level in the ER was 262. The patient continues to take his home Protonix. Despite him reporting a pain of 7 not 10 in the right upper quadrant the patient is asking for food and drink. In the ER the patient was noted to be hypoxic. He is evidently supposed to be on 2 L nasal cannula oxygen at all times. He usually only wears it to sleep. He denies any fevers or chills but after he arrived to the medical floor the patient's temperature was elevated to 99.9. He denies any known COVID exposures. He was just evaluated last week at [facility] due to his roommate reporting that the patient was suicidal. Patient denies suicidal ideation or depression. He states that he was COVID tested when he was evaluated today [facility] and was negative. He denies any change in his cough from his baseline smoker's cough. He denies any change in his chronic shortness of breath. He has not been having any chest pain. The patient had elevated D-dimer in the ER his CT was performed which demonstrated no evidence of PE but bilateral patchy ground-glass opacities. His CT also demonstrated esophagitis. He denies any dysuria. He reports that he has not had a formed stool in many years due to history of colitis. He does not know if he has inflammatory colitis or not. He has had a colonoscopy but has never had an EGD. He reports that he drinks several beers a day and drank 3- 24 oz cans prior to coming to the ER. He also drinks a couple of pt of vodka a day. He has drank heavily since the age of 17 and is drank this amount of alcohol for the last 10 years. He does have a history of alcohol withdrawal but denies a history of alcohol withdrawal seizures. Review of Systems Review of Systems: Narrative: 12 systems were reviewed with pertinent positives and negatives per HPI. Except as documented in the HPI, all other systems were reviewed and are negative. [facility] Past Medical History Medical History (Updated 09/13/20 @ 04:32 by Nettie Recio DO) Alcohol abuse Alcohol withdrawal Chronic respiratory failure with hypoxia, on home O2 therapy COPD (chronic obstructive pulmonary disease) Depression Sees Dr. Watson at [facility] in [place]. HTN (hypertension), benign Nicotine dependence Normal colonoscopy Done in 2019 at [facility] History Surgical History History of cholecystectomy Done in 2019 at [facility] Family History Family History Sibling Unknow
[2020-09-13] MEDS: SODIUM CHLORIDE 0.9% IV 1,000 ML 999 ML IV CONT (02:44)
[2020-09-13 06:14] LABS: Hematocrit 37.5 % (42.0-52.0); Hemoglobin 11.5 g/dL (14.0-18.0); Mean Corpuscular HGB Conc 30.7 g/dl (32-36); Mean Corpuscular Hemoglobin 26.7 pg (26-34); Mean Platelet Volume 8.2 fl (7.4-10.4); Platelet Count Result 209 k/mm3 (150-375); Red Blood Count 4.31 M/mm3 (4.6-6.20); Red Cell Distribution Width 16.2 % (11.5-14.5)
[2020-09-13 06:23] LABS: Anion Gap 9 mmol/L (8-16); Blood Urea Nitrogen 3 mg/dL (9-20); Calcium 7.9 mg/dL (8.4-10.2); Carbon Dioxide 26 mmol/L (22-30); Chloride 106 mmol/L (98-107); Estimated CRCL calculation 144 ml/min; Estimated Glomerular Filt Rate > 60; Glucose 102 mg/dL (75-110); Potassium 3.8 mmol/L (3.4-5.0); Sodium 141 mmol/L (137-145)
[2020-09-13] MEDS: NICOTINE (*PBKC) 21 MG PATCH 1 PATCH TRANSDERM (08:12)
[2020-09-13] MEDS: FOLIC ACID 1 MG TABLET PO (08:12)
[2020-09-13] MEDS: QUEtiapine FUMARATE 100 MG TABLET PO (08:13)
[2020-09-13] MEDS: THIAMINE HCL 100 MG TABLET PO (08:13)
[2020-09-13] MEDS: chlordiazePOXIDE (*CRX) 25 MG CAPSULE 50 MG PO ×3 (08:14→23:20)
[2020-09-13] MEDS: PANTOPRAZOLE SODIUM IV 40 MG VIAL IV PUSH ×2 (08:15→21:15)
[2020-09-13] MEDS: ALBUTEROL SULFATE (*SP) AEROSOL 1 PUFF 4 PUFF INHALATION ×3 (08:59→21:15)
--- NOTE | 2020-09-13 09:39 | PM.IMPN ---
Progress Note: A&P Assessment and Plan (1) Esophagitis: Code(s): K20.90 - Esophagitis, unspecified without bleeding Status: Acute Assessment and Plan: Noted on CT -continue Protonix b.i.d. -GI on board, plan for EGD later today -continue with GI recommendations (2) Acute GI bleeding: Code(s): K92.2 - Gastrointestinal hemorrhage, unspecified Status: Acute Assessment and Plan: No further bleeding -hgb stable at 11.5 this morning with no further evidence of bleeding -pt was 13.8 on admission which is likely a little hyperinflated due to dehydrated, I do not suspect worsening blood loss. -Await EGD, continue protonix (3) RUQ abdominal pain: Code(s): R10.11 - Right upper quadrant pain Status: Acute Assessment and Plan: Noted on exam -may need MRCP if pt continues to have pain -no GB noted on CT -Bili normal (4) Alcohol abuse: Code(s): F10.10 - Alcohol abuse, uncomplicated Status: Acute Assessment and Plan: No signs of withdraw on exam -Last CIWA 4 -Continue librium 50mg Q8 with PRN ativan (5) Person under investigation for severe acute respiratory syndrome coronavirus 2 (SARS-CoV-2) infection: Code(s): Z20.822 - Contact with and (suspected) exposure to COVID-19 Status: Acute Assessment and Plan: Await PCR -Continue ceftriaxone and azithromycin for PNA -Continue albuterol (6) Chronic respiratory failure with hypoxia, on home O2 therapy: Code(s): J96.11 - Chronic respiratory failure with hypoxia; Z99.81 - Dependence on supplemental oxygen Status: Acute Assessment and Plan: Continue home o2 -No additional o2 has been needed at this time -Keeps sats >93 (7) NSVT (nonsustained ventricular tachycardia): Code(s): I47.2 - Ventricular tachycardia Status: Acute Assessment and Plan: 1.8s noted today on tele -check mg stat. potassium is normal -monitor on tele -asymptomatic -could be due to acute illness, ACS not likely since pt has no CP (8) PNA (pneumonia): Code(s): J18.9 - Pneumonia, unspecified organism Status: Acute Assessment and Plan: As above Await COVID PCR -continue ceftriaxone and azithromycin -Aspiration due to alcoholism? Time Spent With Patient Time with patient: 25 - 35 minutes Subjective Date/time seen: 09/13/20 09:39 Interval history: Pt is a 54-year-old male Here for abdominal pain. Patient was seen today and states he still having 7 at 10 right upper quadrant abdominal pain. He has not eaten or drink anything. He has not had any further diarrhea and denies melena in the past. He has not had any more hematemesis. He states he is coughing a little and has dyspnea on exertion when he is up going to the bathroom. He does not feel like he is withdrawing at this time. No chest pain or palpitations noted today. Review of Systems Review of Systems: All systems reviewed & are unremarkable except as noted in HPI and below Exam Narrative: Exam Narrative: General: Well developed well nourished patient in NAD HEENT: normocephalic Neck: supple Neuro: Alert and oriented x4. No resting tremor CV: Slight tachycardia 104 on exam. No murmurs noted. 1.8s NSVT on tele Resp: Crackles and mild wheezing expected Ali in the right lung. No conversational dyspnea Abd: Soft, non distended. Pain to palpation to the right upper quadrant. Positive bowel sounds Extremities: No swelling, erythema, or pain to palpation. Objective Data Vital Signs Vital Signs: Vital Signs - 24 hr 09/12/20 21:31 09/12/20 22:00 09/12/20 22:35 Temperature 97.1 F L Pulse Rate 118 H 111 H 112 H Pulse Rate [Right] Respiratory Rate 18 15 22 H Blood Pressure 142/103 H 132/95 H 156/91 H Pulse Oximetry 92 94 88 L 09/12/20 22:56 09/12/20 22:57 09/12/20 22:58 Temperature Pulse Rate 110 H 116 H 117 H Pulse Rate [Right]
[2020-09-13 15:08] LABS: Magnesium 1.9 mg/dL (1.6-2.3)
--- NOTE | 2020-09-13 16:08 | WPDGICN ---
Assessment and Plan Assessment and plan (1) Hematemesis: Code(s): K92.0 - Hematemesis Status: Acute Assessment and Plan: alcoholic, CT scan showed possible esophagitis on iv protonix once covid test is negative then will do egd tomorrow (he is hemodynamically stable) continue to monitor h/h (2) Esophagitis: Code(s): K20.90 - Esophagitis, unspecified without bleeding Status: Acute Assessment and Plan: will be most likely finding but also alcoholic, need to assess for varices continue with medical treatment (3) Abnormal CT scan, esophagus: Code(s): R93.3 - Abnormal findings on diagnostic imaging of other parts of digestive tract Status: Acute (4) Acute GI bleeding: Code(s): K92.2 - Gastrointestinal hemorrhage, unspecified Status: Acute Assessment and Plan: ppi iv, egd tomorrow (5) Alcohol abuse: Code(s): F10.10 - Alcohol abuse, uncomplicated Status: Acute Assessment and Plan: alcohol withdrawal, thiamine, mvi banana bag needs to quit drinking liver enzymes ok (6) Person under investigation for severe acute respiratory syndrome coronavirus 2 (SARS-CoV-2) infection: Code(s): Z20.822 - Contact with and (suspected) exposure to COVID-19 Status: Acute Assessment and Plan: covid swab pending (7) Chronic respiratory failure with hypoxia, on home O2 therapy: Code(s): J96.11 - Chronic respiratory failure with hypoxia; Z99.81 - Dependence on supplemental oxygen Status: Acute (8) PNA (pneumonia): Code(s): J18.9 - Pneumonia, unspecified organism Status: Acute Assessment and Plan: on antibiotics now, medical treatment, oxygen (9) Nicotine dependence: Code(s): F17.200 - Nicotine dependence, unspecified, uncomplicated Status: Acute (10) Nausea & vomiting: Qualifiers: Vomiting Intractability: non-intractable Vomiting type: unspecified Qualified Code(s): R11.2 - Nausea with vomiting, unspecified Code(s): R11.2 - Nausea with vomiting, unspecified Status: Acute (11) Acute blood loss anemia: Code(s): D62 - Acute posthemorrhagic anemia Status: Acute GI Consult Note Consult date/time: 09/13/20 16:08 Reason for consult: hematemesis, alcohol abuse, abnormal CT scan esophagus HPI: Migue Hernández is a 54 year old male with history of COPD on chronic home O2 therapy, smoker, and chronic alcoholism for several years. He came after new onset of hematemesis for almost a day. He also has been having burning sensation in chest and epigastric area, moderate intensity, last drink was 2 hours prior to arrival to the ER, alcohol level in the ER was 262. He also is using protonix. He also was hypoxic in the ER but has chronic shortness of breath and cough, Also had elevated D-dimer in the ER, CT reviewed- no evidence of PE but bilateral patchy ground-glass opacities, also esophagitis. He has had a colonoscopy but has never had an EGD. His COVID test is pending and he is on isolation. Also getting banana bag and protonix iv. Hb 13 then down to 11, normal platelets and liver enzymes. Review of Systems Constitutional: Constitutional: Denies night sweats Eyes: Eyes: Reports no additional eye complaints ENT: Reports system reviewed and no additional complaints, except as documented Cardiovascular: Cardiovascular: Reports no additional cardiovascular complaints Respiratory: Respiratory: Reports cough and Reports dyspnea on exertion Gastrointestinal: Gastrointestinal: Reports coffee ground emesis, Reports heartburn, Reports nausea and Reports vomiting Musculoskeletal: Musculoskeletal: Denies back pain Integumentary/Breasts: Skin/Breast: Reports system reviewed and no additional complaints, except as docu Neurologic: Reports system reviewed and no additional complaints, except as documented Psychiatric: Psychiatric: Reports anxiety PMFSH Past Medical History
[2020-09-13 16:27] LABS: SARS-CoV-2 RNA PCR Negative
[2020-09-13] MEDS: QUEtiapine FUMARATE 100 MG TABLET 300 MG PO (18:13)
[2020-09-13] MEDS: VENLAFAXINE HCL XR 75 MG CAP.ER.24H 150 MG PO (18:13)
[2020-09-14] VITALS (14 sets, daily range): BP systolic 119–158; BP diastolic 76–102; PULSE 82–97; RESP 13–20; TEMP 36.1–36.7; O2SAT 93–99
[2020-09-14 06:02] LABS: Basophils Percent Auto 0.5 % (0.2-1.2); Eosinophils Percent Auto 0.7 % (0-4.4); Hematocrit 37.6 % (42.0-52.0); Hemoglobin 11.5 g/dL (14.0-18.0); Immature Granulocyte Absolute 0.03 K/mm3 (0.00-0.031); Immature Granulocyte Percent A 0.5 % (0-0.5); Lymphocytes Absolute Auto 1.32 K/mm3 (0.9-3.2); Lymphocytes Percent Auto 24.2 % (18.3-44.2); Mean Corpuscular HGB Conc 30.6 g/dl (32-36); Mean Corpuscular Hemoglobin 26.9 pg (26-34); Mean Corpuscular Volume 87.9 fl (80-100); Mean Platelet Volume 8.7 fl (7.4-10.4); Monocytes Absolute Auto 0.5 K/mm3 (0.1-0.6); Monocytes Percent Auto 9.7 % (2.6-8.5); Neutrophils Absolute Auto 3.5 K/mm3 (1.3-6.7); Neutrophils Percent Auto 64.4 % (45.5-73.1); Platelet Count Result 172 k/mm3 (150-375); Red Blood Count 4.28 M/mm3 (4.6-6.20); White Blood Count 5.5 K/mm3 (4.5-10.0)
[2020-09-14 06:19] LABS: Potassium 3.7 mmol/L (3.4-5.0)
[2020-09-14 06:38] LABS: Alanine Aminotransferase 12 U/L (4-50); Albumin Level 3.4 g/dL (3.5-5.1); Alkaline Phosphatase 74 U/L (38-126); Anion Gap 5 mmol/L (8-16); Aspartate Amino Transferase 21 U/L (17-59); Bilirubin,Total 0.7 mg/dL (0.2-1.3); Blood Urea Nitrogen 6 mg/dL (9-20); CRP 1.9 mg/dL (<1.0); Calcium 8.3 mg/dL (8.4-10.2); Carbon Dioxide 30 mmol/L (22-30); Chloride 101 mmol/L (98-107); Estimated CRCL calculation 144 ml/min; Estimated Glomerular Filt Rate > 60; Glucose 110 mg/dL (75-110); Sodium 136 mmol/L (137-145)
[2020-09-14] MEDS: PANTOPRAZOLE SODIUM IV 40 MG VIAL IV PUSH ×2 (08:00→20:38)
[2020-09-14] MEDS: chlordiazePOXIDE (*CRX) 25 MG CAPSULE 50 MG PO ×3 (08:28→23:24)
--- NOTE | 2020-09-14 09:05 | SUR.PREOP ---
Pt notified Dr. Barbosa would be doing procedure instead of Dr. Joy. Consent updated and pt reinitialed consent to procedure.
[2020-09-14] MEDS: LACTATED RINGERS 1,000 ML 150 ML IV CONT (09:08)
--- NOTE | 2020-09-14 09:18 | WPDANESEPPF ---
Anes - Initial Pre Proc Eval Procedure: Operation Date: 09/14/20 10:00 Proposed Procedures p Esophagogastroduodenoscopy - Manuel Barbosa MD Date/Time: 09/14/20 09:18 Surgeon: Yeni Hollingsworth PA-C Pre Op Diagnosis: GI bleed, esophagitis, alcohol abuse Patient Data Age: 54 Gender: M Height: 5 ft 9 in Weight: 82.9 kg Last Vital Signs Temp 36.1 C L 09/14/20 09:02 Pulse 94 09/14/20 09:02 Resp 20 09/14/20 09:02 BP 158/102 H 09/14/20 09:02 Pulse Ox 98 09/14/20 09:02 Allergies Allergy/AdvReac Type Severity Reaction Status Date / Time tomato Allergy Unknown Anaphylaxis Verified 09/14/20 09:00 Home Medications Medication Instructions Recorded Confirmed Type quetiapine 100 mg PO QAM 05/17/20 09/13/20 History venlafaxine 150 mg PO QPM 05/17/20 09/13/20 History chlordiazepoxide HCl 25 mg PO DIRECTED #20 cap 05/18/20 09/13/20 Rx folic acid 1 mg PO DAILY #30 tablet 05/18/20 09/13/20 Rx pantoprazole 40 mg PO Q12HR #60 tablet 05/18/20 09/13/20 Rx thiamine HCl (vitamin B1) [Vitamin 100 mg PO QAM #30 tablet 05/18/20 09/13/20 Rx B-1] quetiapine 300 mg PO QPM 09/12/20 09/13/20 History Laboratory Tests 09/13/20 09/13/20 09/14/20 01:01 05:57 05:42 WBC 5.5 K/mm3 K/mm3 (4.5-10.0) RBC 4.28 M/mm3 L M/mm3 (4.6-6.20) Hgb 11.5 g/dL L g/dL (14.0-18.0) Hct 37.6 % L % (42.0-52.0) MCV 87.9 fl fl (80-100) MCH 26.9 pg pg (26-34) MCHC 30.6 g/dl L g/dl (32-36) RDW 16.0 % H % (11.5-14.5) Plt Count 172 k/mm3 k/mm3 (150-375) MPV 8.7 fl fl (7.4-10.4) Immature Gran % (Auto) 0.5 % % (0-0.5) Neut % (Auto) 64.4 % % (45.5-73.1) Lymph % (Auto) 24.2 % % (18.3-44.2) [place] % (Auto) 9.7 % H % (2.6-8.5) Eos % (Auto) 0.7 % % (0-4.4) Baso % (Auto) 0.5 % % (0.2-1.2) Lymph # (Auto) 1.32 K/mm3 K/mm3 (0.9-3.2) [place] # (Auto) 0.5 K/mm3 K/mm3 (0.1-0.6) Eos # (Auto) 0.0 K/mm3 K/mm3 (0-0.3) Baso # (Auto) 0.0 K/mm3 K/mm3 (0.0-0.1) Abs Immat Gran (auto) 0.03 K/mm3 K/mm3 (0.00-0.031) Absolute Neuts (auto) 3.5 K/mm3 K/mm3 (1.3-6.7) Absolute Nucleated RBC 0.0 K/mm3 K/mm3 (0.0-0.012) Nucleated RBC % 0.0 % % (0.0-0.2) Sodium Potassium Chloride Carbon Dioxide Anion Gap BUN Creatinine Estim Creat Clear Calc Estimated GFR Glucose Calcium Magnesium 1.9 mg/dL mg/dL (1.6-2.3) Total Bilirubin Direct Bilirubin AST ALT Alkaline Phosphatase C-Reactive Protein Total Protein Albumin SARS-CoV-2 RNA (RT-PCR) Negative 09/14/20 05:42 WBC RBC Hgb Hct MCV MCH MCHC RDW Plt Count MPV Immature Gran % (Auto) Neut % (Auto) Lymph % (Auto) [place] % (Auto) Eos % (Auto) Baso % (Auto) Lymph # (Auto) [place] # (Auto) Eos # (Auto) Baso # (Auto) Abs Immat Gran (auto) Absolute Neuts (auto) Absolute Nucleated RBC Nucleated RBC % Sodium 136 mmol/L L mmol/L (137-145) Potassium 3.7 mmol/L mmol/L (3.4-5.0) Chloride 101 mmol/L mmol/L (98-107) Carbon Dioxide 30 mmol/L mmol/L (22-30) Anion Gap 5 mmol/L L mmol/L (8-16) BUN 6 mg/dL L mg/dL (9-20) Creatinine 0.50 mg/dL L mg/dL (0.7-1.3) Estim Creat Clear Calc 144 ml/min ml/min Estimated GFR > 60 (59 - ) Glucose 110 mg/dL mg/dL (75-110) Calcium 8.3 mg/dL L mg/dL (8.4-10.2) Magnesium Total Bilirubin 0.7 mg/dL mg/dL (0.2-1.3) Direct Bilirubin 0.0 mg/dL mg/dL
[2020-09-14] MEDS: ALBUTEROL SULFATE (*SP) AEROSOL 1 PUFF 4 PUFF INHALATION ×3 (11:09→20:39)
[2020-09-14] MEDS: FOLIC ACID 1 MG TABLET PO (11:10)
[2020-09-14] MEDS: NICOTINE (*PBKC) 21 MG PATCH 1 PATCH TRANSDERM (11:10)
[2020-09-14] MEDS: QUEtiapine FUMARATE 100 MG TABLET PO (11:11)
[2020-09-14] MEDS: THIAMINE HCL 100 MG TABLET PO (11:11)
--- NOTE | 2020-09-14 12:01 | PM.IMPN ---
Progress Note: A&P Assessment and Plan (1) Esophagitis: Code(s): K20.90 - Esophagitis, unspecified without bleeding Status: Acute Assessment and Plan: Noted on CT upon presentation and again noted on EGD today which showed reflux esophagitis grade IV with no active bleeding. -continue Protonix b.i.d. -GI is following and recommendations are appreciated. Dr. Amaya has recommended patient call in 2-3 days for results and repeat EGD in 2 months. -Advance diet. (2) Acute GI bleeding: Code(s): K92.2 - Gastrointestinal hemorrhage, unspecified Status: Acute Assessment and Plan: Presented with hematemesis on 09/12/2020. No further episodes of bleeding since that time. -continue Protonix -Continue GI recommendations. Plan as above. (3) Anemia: Code(s): D64.9 - Anemia, unspecified Status: Acute Assessment and Plan: Hemoglobin was 13.8 on admission, likely hemoconcentrated due to dehydration with slight decline to 11.5. No evidence of ongoing bleeding based on EGD and do not suspect further blood loss. H&H remaining stable and vital signs are stable. -trend H&H. Transfuse as needed with hemoglobin threshold <7.0 -check iron panel, B12, and folate (4) RUQ abdominal pain: Code(s): R10.11 - Right upper quadrant pain Status: Acute Assessment and Plan: Noted on exam. Gallbladder is surgically absent, noted on CTA. -may need MRCP if pt continues to have pain -Bili and LFTs normal -Monitor clinically (5) Alcohol abuse: Code(s): F10.10 - Alcohol abuse, uncomplicated Status: Acute Assessment and Plan: Patient drinks 2 pints of vodka daily as well as 5-6 24 oz beers. Last drink 09/12/2020 in the evening. CIWA scores today have been 0. He does complain of tremor, sweating, and confusion. -continue CIWA protocol -continue scheduled Librium q8h. Will taper to q12h for tomorrow if scores remain low. -alcohol cessation has been discussed. Care coordination following. Information for rehab facilities has been provided and patient would like to consider. (6) Chronic respiratory failure with hypoxia, on home O2 therapy: Code(s): J96.11 - Chronic respiratory failure with hypoxia; Z99.81 - Dependence on supplemental oxygen Status: Acute Assessment and Plan: He is on chronic home oxygen. At this time he is not requiring any supplemental O2 -supplemental O2 as needed with goal saturation 92% or above. (7) PNA (pneumonia): Code(s): J18.9 - Pneumonia, unspecified organism Status: Acute Assessment and Plan: Community-acquired pneumonia. CTA chest showed patchy ground-glass opacities of the lungs. He had mild low-grade fever of 99.9 upon presentation which has resolved. No leukocytosis. COVID negative. -continue ceftriaxone and azithromycin -check Legionella and pneumococcal urinary antigens -blood cultures pending. Order sputum culture -supportive care to include expectorants and bronchodilators -supplemental O2 as needed (8) COVID-19 ruled out by laboratory testing: Code(s): Z20.822 - Contact with and (suspected) exposure to COVID-19 Status: Acute Assessment and Plan: Negative result on 09/13/2020. -isolation precautions discontinued (9) NSVT (nonsustained ventricular tachycardia): Code(s): I47.2 - Ventricular tachycardia Status: Acute Assessment and Plan: 1.8s noted on tele on 09/13. Telemetry reviewed today which showed normal sinus rhythm with no evidence of abnormalities. Magnesium and potassium within normal limits. He is asymptomatic. Could be due to acute illness. ACS not suspected due to lack of clinical findings. -will discontinue telemetry. Subjective Date/time seen: 09/14/20 12:01 Interval history: Date of service: 09/14/2020 Migue Hernández is a 54-year-old male with history alcohol abuse, depression, hyperten
[2020-09-14] MEDS: ACETAMINOPHEN 325 MG TABLET 650 MG PO (12:43)
[2020-09-14] MEDS: VENLAFAXINE HCL XR 75 MG CAP.ER.24H 150 MG PO (18:49)
[2020-09-14] MEDS: QUEtiapine FUMARATE 100 MG TABLET 300 MG PO (18:50)
[2020-09-14] MEDS: guaiFENesin 12 HR 600 MG TABCR PO (20:38)
[2020-09-15] VITALS (7 sets, daily range): BP systolic 104–126; BP diastolic 50–86; PULSE 72–100; RESP 16–18; TEMP 36.4–36.8; O2SAT 92–98
[2020-09-15] MEDS: ALBUTEROL SULFATE (*SP) AEROSOL 1 PUFF 4 PUFF INHALATION ×3 (04:27→16:34)
[2020-09-15 06:53] LABS: Hematocrit 36.2 % (42.0-52.0); Hemoglobin 11.3 g/dL (14.0-18.0); Mean Corpuscular HGB Conc 31.2 g/dl (32-36); Mean Corpuscular Hemoglobin 26.7 pg (26-34); Mean Corpuscular Volume 85.6 fl (80-100); Mean Platelet Volume 8.9 fl (7.4-10.4); Platelet Count Result 175 k/mm3 (150-375); Red Blood Count 4.23 M/mm3 (4.6-6.20); Red Cell Distribution Width 15.6 % (11.5-14.5); White Blood Count 4.4 K/mm3 (4.5-10.0)
[2020-09-15 07:13] LABS: Anion Gap 2 mmol/L (8-16); Blood Urea Nitrogen 9 mg/dL (9-20); Calcium 8.3 mg/dL (8.4-10.2); Carbon Dioxide 33 mmol/L (22-30); Chloride 105 mmol/L (98-107); Estimated CRCL calculation 106 ml/min; Estimated Glomerular Filt Rate > 60; Glucose 84 mg/dL (75-110); Sodium 140 mmol/L (137-145)
[2020-09-15] MEDS: chlordiazePOXIDE (*CRX) 25 MG CAPSULE 50 MG PO ×2 (09:14→20:47)
[2020-09-15] MEDS: PANTOPRAZOLE SODIUM IV 40 MG VIAL IV PUSH ×2 (09:14→20:47)
[2020-09-15] MEDS: NICOTINE (*PBKC) 21 MG PATCH 1 PATCH TRANSDERM (09:15)
[2020-09-15] MEDS: THIAMINE HCL 100 MG TABLET PO (09:15)
[2020-09-15] MEDS: guaiFENesin 12 HR 600 MG TABCR PO ×2 (09:15→20:47)
[2020-09-15] MEDS: QUEtiapine FUMARATE 100 MG TABLET PO (09:15)
[2020-09-15] MEDS: FOLIC ACID 1 MG TABLET PO (09:15)
--- NOTE | 2020-09-15 11:41 | WPDANESPN ---
Anes - Prog Note Post-Op Date/Time: 09/15/20 11:41 Cardiovascular status: normal Respiratory status: normal Airway patency: baseline Mental status: baseline Post-Op hydration status: normal Vital Signs: Last Vital Signs Temp 36.4 C 09/15/20 06:00 Pulse 88 09/15/20 06:00 Resp 18 09/15/20 06:00 BP 126/86 09/15/20 06:00 Pulse Ox 97 09/15/20 09:10 Pain Score (VAS): no complaints I/O: Intake & Output 09/14/20 09/15/20 09/15/20 23:59 07:59 15:59 Intake Total 790 600 Output Total 1100 800 Balance -310 -200 Laboratory Tests 09/15/20 06:19 09/15/20 06:19 09/14/20 09/15/20 09/15/20 13:29 06:19 06:19 WBC 4.4 L RBC 4.23 L Hgb 11.3 L Hct 36.2 L MCV 85.6 MCH 26.7 MCHC 31.2 L RDW 15.6 H Plt Count 175 MPV 8.9 Sodium 140 Potassium 4.0 Chloride 105 Carbon Dioxide 33 H Anion Gap 2 L BUN 9 Creatinine 0.70 Estim Creat Clear Calc 106 Estimated GFR > 60 Glucose 84 Calcium 8.3 L Ur L.pneumophila Ag Pending Urine Pneumococcal Ag Pending Microbiology 09/13/20 05:58 Blood Blood Culture - Preliminary 09/13/20 05:58 Blood Blood Culture - Preliminary Patient Feedback: Patient satisfied with anesthetic care.
--- NOTE | 2020-09-15 11:44 | WPDGIPROGNO ---
Progress Note: A&P Assessment and Plan (1) Erosive esophagitis: Code(s): K22.10 - Ulcer of esophagus without bleeding Status: Acute Assessment and Plan: EGD with grade IV erosive esophagitis continue with protonix bid (probably will need exterminator helper termite), pending path report and repeat EGD in 2 months as outpatient tolerating diet, probably can go home soon but still treatment for pneumonia abdominal pain improved, also had normal liver enzymes (2) Acute blood loss anemia: Code(s): D62 - Acute posthemorrhagic anemia Status: Acute Assessment and Plan: hb stable and no more bleeding (3) Hematemesis: Code(s): K92.0 - Hematemesis Status: Acute Assessment and Plan: from erosive esophagitis (4) Abnormal CT scan, esophagus: Code(s): R93.3 - Abnormal findings on diagnostic imaging of other parts of digestive tract Status: Acute (5) PNA (pneumonia): Code(s): J18.9 - Pneumonia, unspecified organism Status: Acute Assessment and Plan: on antibiotics, better covid negative (6) Alcohol abuse: Code(s): F10.10 - Alcohol abuse, uncomplicated Status: Acute Assessment and Plan: needs to quit supportive care (7) RUQ abdominal pain: Code(s): R10.11 - Right upper quadrant pain Status: Acute Subjective Date/time seen: 09/15/20 11:44 Interval history: he is tolerating soft diet, feeling better, less pain in ruq. He is comfortable and no more vomiting Review of Systems Review of Systems: All systems reviewed & are unremarkable except as noted in HPI and below Exam Const: General: comfortable and no acute distress HENMT: General nose exam: Normal nares present Eyes: General: appearance normal, both eyes and all related structures Neck: Neck: no JVD Resp: Effort & Inspection: normal respiratory effort Auscultation: no crackles and diminished lung sounds Cardio: Rate: regular rate Rhythm: regular rhythm GI: Inspection: non-distended GI Palp: Yes Soft to palpation, No Tenderness to palpation present (GI) and No Guarding due to palpation present (GI) Auscultation: normal bowel sounds Skin: General skin exam: normal color Neuro: Speech: normal speech Motor exam (neuro): Normal motor muscle tone present throughout Extrem: General: normal to inspection Psych: Affect: Anxious affect present Objective Data Vital Signs Vital Signs: Vital Signs - 24 hr 09/14/20 12:00 09/14/20 14:00 09/14/20 16:00 Temperature 98.1 F Pulse Rate 90 95 Pulse Rate [Right] 90 90 Respiratory Rate 18 Blood Pressure 131/83 131/83 131/83 Pulse Oximetry 95 09/14/20 20:00 09/14/20 22:00 09/15/20 06:00 Temperature 97.9 F 97.6 F Pulse Rate 88 88 Pulse Rate [Right] 88 Respiratory Rate 18 18 Blood Pressure 147/93 H 147/93 H 126/86 Pulse Oximetry 95 99 98 09/15/20 09:10 Temperature Pulse Rate Pulse Rate [Right] Respiratory Rate Blood Pressure Pulse Oximetry 97 Intake/Output Intake/Output: Intake & Output 09/12/20 09/13/20 09/14/20 09/15/20 23:59 23:59 23:59 23:59 Intake Total 4638 858 9561 600 Output Total 300 1625 800 Balance 1000 560 105 -200 Meds/Results Medications: Active Medications Generic Name Dose Route Start Last Admin Trade Name Freq PRN Reason Stop Dose Admin Acetaminophen 650 mg 09/14/20 12:22 09/14/20 12:43 Acetaminophen 325 Mg Tablet PO 650 mg Q4H PRN Administration Pain 1-3 Albuterol 4 puff 09/13/20 08:00 09/15/20 09:16 Albuterol Sulfate (*Sp) Aerosol 1 Puff INHALATION 4 puff Q6HRT NADYA Administration Chlordiazepoxide HCl 50 mg 09/13/20 08:00 09/15/20 09:14 Chlordiazepoxide (*Crx) 25 Mg Capsule PO 50 mg Q8H NADYA Administration Folic Acid 1 mg 09/13/20 09:00 09/15/20 09:15 Folic Acid 1 Mg Tablet PO 1 mg DAILY NADYA Administration Guaifenesin 600 mg 09/14/20 21:00 09/15/20 09:15 Guaifenesin 12 Hr 600 Mg Tabc
--- NOTE | 2020-09-15 14:50 | PM.IMPN ---
Progress Note: A&P Assessment and Plan (1) Esophagitis: Code(s): K20.90 - Esophagitis, unspecified without bleeding Status: Acute Assessment and Plan: Noted on CT upon presentation and again noted on EGD which showed reflux esophagitis grade IV with no active bleeding. -continue Protonix b.i.d. -GI is following and recommendations are appreciated. Dr. Amaya has recommended patient call in 2-3 days for results and repeat EGD in 2 months. -Advance diet as tolerated (2) Acute GI bleeding: Code(s): K92.2 - Gastrointestinal hemorrhage, unspecified Status: Acute Assessment and Plan: Presented with hematemesis on 09/12/2020. No further episodes of bleeding since that time. -continue Protonix -Continue GI recommendations. Plan as above. (3) Anemia: Code(s): D64.9 - Anemia, unspecified Status: Acute Assessment and Plan: Hemoglobin was 13.8 on admission, likely hemoconcentrated due to dehydration with slight decline to 11.5. No evidence of ongoing bleeding based on EGD and do not suspect further blood loss. H&H remaining stable and vital signs are stable. -trend H&H. Transfuse as needed with hemoglobin threshold <7.0 (4) RUQ abdominal pain: Code(s): R10.11 - Right upper quadrant pain Status: Acute Assessment and Plan: Noted on exam. Gallbladder is surgically absent, noted on CTA. -Bili and LFTs normal -Monitor clinically cT abdomen with no acute findigns in abdomen. (5) Alcohol abuse: Code(s): F10.10 - Alcohol abuse, uncomplicated Status: Acute Assessment and Plan: Patient drinks 2 pints of vodka daily as well as 5-6 24 oz beers. Last drink 09/12/2020 in the evening. CIWA scores have been 0. He does complain of tremor, sweating, and confusion. -continue CIWA protocol -continue scheduled Librium, lower down to q12hr. -alcohol cessation has been discussed. Care coordination following. Information for rehab facilities has been provided and patient would like to consider. (6) Chronic respiratory failure with hypoxia, on home O2 therapy: Code(s): J96.11 - Chronic respiratory failure with hypoxia; Z99.81 - Dependence on supplemental oxygen Status: Acute Assessment and Plan: He is on chronic home oxygen. At this time he is not requiring any supplemental O2 -supplemental O2 as needed with goal saturation 92% or above. (7) PNA (pneumonia): Code(s): J18.9 - Pneumonia, unspecified organism Status: Acute Assessment and Plan: Community-acquired pneumonia. CTA chest showed patchy ground-glass opacities of the lungs. He had mild low-grade fever of 99.9 upon presentation which has resolved. No leukocytosis. COVID negative. -continue ceftriaxone and azithromycin -check Legionella and pneumococcal urinary antigens which is pending. -blood cultures pending. Order sputum culture -supportive care to include expectorants and bronchodilators -supplemental O2 as needed (8) COVID-19 ruled out by laboratory testing: Code(s): Z20.822 - Contact with and (suspected) exposure to COVID-19 Status: Acute Assessment and Plan: Negative result on 09/13/2020. -isolation precautions discontinued (9) NSVT (nonsustained ventricular tachycardia): Code(s): I47.2 - Ventricular tachycardia Status: Acute Assessment and Plan: 1.8s noted on tele on 09/13. Telemetry reviewed today which showed normal sinus rhythm with no evidence of abnormalities. Magnesium and potassium within normal limits. He is asymptomatic. Could be due to acute illness. ACS not suspected due to lack of clinical findings. -will discontinue telemetry. Additional Plan # Upper Gi bleed with esophagitis # chronic alcoholism # biatleral pneumonia # alcohol withdrawal; on librium # elevated Dd dimer Subjective Date/time seen: 09/15/20 14:50 Interval history: no overnigh
[2020-09-15] MEDS: VENLAFAXINE HCL XR 75 MG CAP.ER.24H 150 MG PO (16:42)
[2020-09-15] MEDS: QUEtiapine FUMARATE 100 MG TABLET 300 MG PO (16:43)
[2020-09-16] VITALS (7 sets, daily range): BP systolic 122–126; BP diastolic 54–84; PULSE 55–99; RESP 16–18; TEMP 36.6–36.7; O2SAT 94–95
--- NOTE | 2020-09-16 05:20 | PC.NURSE ---
Daylight Savings Time For Daylight Savings Time Ending in the Fall - Clocks are moved back. For Daylight Savings Time Beginning in the Spring - Clocks are moved ahead. For [facility], the time of change occurs at 0200 hrs. Time is taken from the dining room server. This entry on the patient's chart recognizes the change in time reflected during documentation. Example: 2 entries for vital signs may be charted for 0200 hrs.
[2020-09-16 06:29] LABS: Anion Gap 5 mmol/L (8-16); Blood Urea Nitrogen 7 mg/dL (9-20); Carbon Dioxide 32 mmol/L (22-30); Chloride 101 mmol/L (98-107); Estimated CRCL calculation 122 ml/min; Estimated Glomerular Filt Rate > 60; Glucose 112 mg/dL (75-110); Potassium 3.7 mmol/L (3.4-5.0); Sodium 138 mmol/L (137-145)
[2020-09-16 06:48] LABS: Basophils Percent Auto 0.7 % (0.2-1.2); Eosinophils Absolute Auto 0.1 K/mm3 (0-0.3); Eosinophils Percent Auto 1.2 % (0-4.4); Hematocrit 38.1 % (42.0-52.0); Hemoglobin 11.8 g/dL (14.0-18.0); Immature Granulocyte Absolute 0.07 K/mm3 (0.00-0.031); Immature Granulocyte Percent A 1.6 % (0-0.5); Lymphocytes Absolute Auto 1.43 K/mm3 (0.9-3.2); Lymphocytes Percent Auto 33.3 % (18.3-44.2); Mean Corpuscular Hemoglobin 26.7 pg (26-34); Mean Corpuscular Volume 86.2 fl (80-100); Mean Platelet Volume 8.7 fl (7.4-10.4); Monocytes Absolute Auto 0.4 K/mm3 (0.1-0.6); Monocytes Percent Auto 8.6 % (2.6-8.5); Neutrophils Absolute Auto 2.4 K/mm3 (1.3-6.7); Neutrophils Percent Auto 54.6 % (45.5-73.1); Platelet Count Result 203 k/mm3 (150-375); Red Blood Count 4.42 M/mm3 (4.6-6.20); Red Cell Distribution Width 15.7 % (11.5-14.5); White Blood Count 4.3 K/mm3 (4.5-10.0)
[2020-09-16] MEDS: THIAMINE HCL 100 MG TABLET PO (08:34)
[2020-09-16] MEDS: FOLIC ACID 1 MG TABLET PO (08:34)
[2020-09-16] MEDS: guaiFENesin 12 HR 600 MG TABCR PO ×2 (08:34→21:22)
[2020-09-16] MEDS: PANTOPRAZOLE SODIUM IV 40 MG VIAL IV PUSH ×2 (08:35→21:22)
[2020-09-16] MEDS: QUEtiapine FUMARATE 100 MG TABLET PO (08:35)
[2020-09-16] MEDS: NICOTINE (*PBKC) 21 MG PATCH 1 PATCH TRANSDERM (08:35)
[2020-09-16] MEDS: ALBUTEROL SULFATE (*SP) AEROSOL 1 PUFF 4 PUFF INHALATION ×2 (08:41→13:25)
[2020-09-16] MEDS: chlordiazePOXIDE (*CRX) 25 MG CAPSULE 50 MG PO ×2 (08:45→21:22)
--- NOTE | 2020-09-16 16:32 | PM.IMPN ---
Progress Note: A&P Assessment and Plan (1) Acute GI bleeding: Code(s): K92.2 - Gastrointestinal hemorrhage, unspecified Status: Acute Assessment and Plan: S/p EGD Found to have multiple linear ulcers. On PPI Appears to have stopped. (2) Acute blood loss anemia: Code(s): D62 - Acute posthemorrhagic anemia Status: Acute Assessment and Plan: Secondary to GI bleed Transfuse as needed (3) Hematemesis: Code(s): K92.0 - Hematemesis Status: Acute Assessment and Plan: Resolved (4) Erosive esophagitis: Code(s): K22.10 - Ulcer of esophagus without bleeding Status: Acute Assessment and Plan: Continue to monitor Will follow up i the outpatient setting. (5) Nausea & vomiting: Qualifiers: Vomiting Intractability: non-intractable Vomiting type: unspecified Qualified Code(s): R11.2 - Nausea with vomiting, unspecified Code(s): R11.2 - Nausea with vomiting, unspecified Status: Acute Assessment and Plan: Resolved Likely secondary to ETOH abuse. Supportive care (6) PNA (pneumonia): Code(s): J18.9 - Pneumonia, unspecified organism Status: Acute Assessment and Plan: Continue current antibiotic choice Suspect aspiration. (7) Shortness of breath: Code(s): R06.02 - Shortness of breath Status: Acute Assessment and Plan: Resolved (8) RUQ abdominal pain: Code(s): R10.11 - Right upper quadrant pain Status: Acute Assessment and Plan: No abdominal pain today (9) Chronic respiratory failure with hypoxia, on home O2 therapy: Code(s): J96.11 - Chronic respiratory failure with hypoxia; Z99.81 - Dependence on supplemental oxygen Status: Acute Assessment and Plan: Continue supplemental oxygen Supportive care (10) Nicotine dependence: Code(s): F17.200 - Nicotine dependence, unspecified, uncomplicated Status: Acute Assessment and Plan: Nicotine patch as needed (11) HTN (hypertension), benign: Code(s): I10 - Essential (primary) hypertension Status: Acute Assessment and Plan: Continue home meds Continue to monitor (12) COVID-19 ruled out by laboratory testing: Code(s): Z20.822 - Contact with and (suspected) exposure to COVID-19 Status: Acute Assessment and Plan: Ruled out. Subjective Date/time seen: 09/16/20 16:32 Patient states that he is feeling much better today. Review of Systems Review of Systems: Narrative: no new issues, no complains today. Constitutional: Comments: no fevers, no rigors, no chills. Cardiovascular: Comments: no chest pain, no leg swelling, no pnd, no orthopnea. Respiratory: Comments: no sob, no cough, no sputum production. Gastrointestinal: Comments: no n/v/hematemesis Musculoskeletal: Comments: no joint pain. Integumentary/Breasts: Comments: no rashes Neurologic: Comments: no tremors Exam Narrative: Exam Narrative: Lying in bed Const: General: comfortable, no acute distress, alert, awake and Physically active Nutritional Appearance: well nourished Orientation/consciousness: patient oriented x3 HENMT: Head: normal to inspection and normocephalic Ears: hearing grossly normal bilaterally General nose exam: Normal external nose present Face and sinus: normal facial exam Eyes: General: appearance normal, both eyes and all related structures Pupils: Equal, round and reactive pupils present EOM: EOMs intact bilaterally Neck: Neck: no lymphadenopathy, supple and no JVD Resp: Effort & Inspection: normal respiratory effort and able to speak in complete sentences Auscultation: clear to auscultation bilaterally Cardio: Jugular venous distension: no JVD Rate: regular rate Rhythm: regular rhythm GI: GI Palp: Yes Soft to palpation and Yes No hepatosplenomegaly present Skin: Rashes: no rashes Wounds: no wounds Neuro: General: patient oriented x3 and
[2020-09-16] MEDS: QUEtiapine FUMARATE 100 MG TABLET 300 MG PO (17:17)
[2020-09-16] MEDS: VENLAFAXINE HCL XR 75 MG CAP.ER.24H 150 MG PO (17:17)
[2020-09-16 18:04] LABS: Pneumococcal Antigen Urine Not Detected (Not Detected)
[2020-09-17] VITALS: BP 124/81; PULSE 55
[2020-09-17 03:51] VITALS: BP 110/67; PULSE 68
[2020-09-17 05:59] VITALS: BP 122/84; PULSE 83; RESP 16; TEMP 36.4; O2SAT 95
[2020-09-17] MEDS: ALBUTEROL SULFATE (*SP) AEROSOL 1 PUFF 4 PUFF INHALATION (09:29)
[2020-09-17] MEDS: NICOTINE (*PBKC) 21 MG PATCH 1 PATCH TRANSDERM (09:30)
[2020-09-17] MEDS: guaiFENesin 12 HR 600 MG TABCR PO (09:30)
[2020-09-17] MEDS: FOLIC ACID 1 MG TABLET PO (09:30)
[2020-09-17] MEDS: THIAMINE HCL 100 MG TABLET PO (09:30)
[2020-09-17] MEDS: PANTOPRAZOLE SODIUM IV 40 MG VIAL IV PUSH (09:30)
[2020-09-17] MEDS: QUEtiapine FUMARATE 100 MG TABLET PO (09:31)
[2020-09-17] MEDS: chlordiazePOXIDE (*CRX) 25 MG CAPSULE 50 MG PO (09:35)
--- NOTE | 2020-09-17 11:23 | PM.DS ---
DS: Admitting Diagnosis Admitting Diagnosis Admitting Diagnosis: (1) Esophagitis: 2 - Gastrointestinal hemorrhage, unspecified (3) Person under investigation for severe acute respiratory syndrome coronavirus 2 (SARS-CoV-2) infection: Code(s): (4) Alcohol abuse: (5) On home oxygen therapy: (6) Nicotine dependence: DS: Discharge Diagnosis Discharge Diagnosis (1) Alcohol withdrawal: Code(s): F10.239 - Alcohol dependence with withdrawal, unspecified Status: Acute Assessment and Plan: Resolved (2) Erosive esophagitis: Code(s): K22.10 - Ulcer of esophagus without bleeding Status: Acute Assessment and Plan: Stable (3) COVID-19 ruled out by laboratory testing: Code(s): Z20.822 - Contact with and (suspected) exposure to COVID-19 Status: Acute Assessment and Plan: Ruled out (4) Acute blood loss anemia: Code(s): D62 - Acute posthemorrhagic anemia Status: Acute Assessment and Plan: Stable (5) Hematemesis: Code(s): K92.0 - Hematemesis Status: Acute Assessment and Plan: Resolved. (6) PNA (pneumonia): Code(s): J18.9 - Pneumonia, unspecified organism Status: Acute Assessment and Plan: Will complete outpatient antibiotic course (7) NSVT (nonsustained ventricular tachycardia): Code(s): I47.2 - Ventricular tachycardia Status: Acute Assessment and Plan: Resolved (8) Chronic respiratory failure with hypoxia, on home O2 therapy: Code(s): J96.11 - Chronic respiratory failure with hypoxia; Z99.81 - Dependence on supplemental oxygen Status: Acute Assessment and Plan: Continue home O2 (9) HTN (hypertension), benign: Code(s): I10 - Essential (primary) hypertension Status: Acute Assessment and Plan: Stable Continue home meds (10) Nicotine dependence: Code(s): F17.200 - Nicotine dependence, unspecified, uncomplicated Status: Acute Assessment and Plan: Encouraged cessation. (11) Nausea & vomiting: Qualifiers: Vomiting Intractability: non-intractable Vomiting type: unspecified Qualified Code(s): R11.2 - Nausea with vomiting, unspecified Code(s): R11.2 - Nausea with vomiting, unspecified Status: Acute Assessment and Plan: Resolved DS: Summary Hospital Course Reason for hospitalization: Hematemesis Hospital Course: 54-year-old man with a past medical history of COPD on chronic home O2 therapy, tobacco abuse, chronic alcoholism who presented to the ER ambulatory from home due to hematemesis. Stated that he called his primary care provider office and was recommended that he come to the ED. He did not come right away and waited a day or so. That he has been having vomiting for couple of days. Initially it was not that much blood in his vomit, also more blood was present in the vomit. The patient was seen to have an episode of emesis in the Ed that was mostly green in color with some blood-tinged, is accompanied by burning epigastric abdominal pain that radiates into his chest and right upper quadrant, the pain in his right upper quadrant is 7/10 in intensity and is worse with palpation. He did not take any medications for his pain. His other associated symptoms included irritability, tremors and palpitations. He was still able to drink enough alcohol to prevent alcohol withdrawal. His last drink was around 7:00 p.m. prior to coming to the ED around 9:00 p.m.. His alcohol level in the ED was 262. The patient continued to take his home Protonix. Despite him reporting a pain of 7 not 10 in the RUQ the patient was asking for food and drink. In the ED the patient was noted to be hypoxic. He is evidently supposed to be on 2 L nasal cannula oxygen at all times. He usually only wears it to sleep. He denied any fevers or chills but after he arrived to the medical floor
[2020-09-18 03:30] LABS: Legionella pneumophila Ag Ur Not Detected (Not Detected)
== END 2020-09-17 12:12 | disposition home or self-care (01) ==
LOC: ANHED 09-13 01:40 → ANH3MEDSUR 09-13 07:41
PROVIDERS: Internal Medicine Gastroenterology; Physician Assistant; Admitting Provider Internal Medicine; Emergency Provider Emergency Medicine; PCP Nurse Practitioner Family; Visit Provider Internal Medicine
PROC: 0DJ08ZZ Inspection of Upper Intestinal Tract, Via Natural or Artificial Opening Endoscopic (ICD-10-PCS; CPT 43235; principal; 2020-09-14 10:00)
DX: K20.90 Esophagitis, unspecified without bleeding (principal); K92.2 Gastrointestinal hemorrhage, unspecified; J18.9 Pneumonia, unspecified organism; Z20.822 Contact with and (suspected) exposure to COVID-19; F10.20 Alcohol dependence, uncomplicated; Z99.81 Dependence on supplemental oxygen; F17.210 Nicotine dependence, cigarettes, uncomplicated; I47.2 Ventricular tachycardia; D64.9 Anemia, unspecified; J96.11 Chronic respiratory failure with hypoxia; J44.9 Chronic obstructive pulmonary disease, unspecified; Y90.8 Blood alcohol level of 240 mg/100 ml or more; R07.9 Chest pain, unspecified; I10 Essential (primary) hypertension
CPT/HCPCS: 43239; 36415; 71046; 71275; 74177; 80048; 80053; 80076; 80307; 81001; 83690; 83735; 84484; 85025; 85027; 85380; 85610; 85730; 86140; 86850; 86900; 86901; 87040; 87081; 87449; 87899; 88305; 93005; 93970; 94640; 96361; 96365; 96366; 96367; 96375; 96376; 99285; A9270; C9113; C9803; G0378; J0131; J0456; J0696; J2001; J2405; J2704; J3411; J3475; J7030; J7120; Q9967; U0003; U0005

== ENCOUNTER 2020-09-29 23:21 | Emergency (ER) | payer MEDICARE, MEDICAID, SELFPAY ==
[2020-09-29 23:26] VITALS: BP 144/87; PULSE 103; PULSE 108; RESP 12; RESP 17; TEMP 36.5; O2SAT 92; O2SAT 96
[2020-09-29 23:27] VITALS: PULSE 102; RESP 15; O2SAT 94
[2020-09-29 23:30] VITALS: PULSE 108; RESP 16
[2020-09-29 23:31] VITALS: BP 136/85; PULSE 106; RESP 16
[2020-09-29] MEDS: SODIUM CHLORIDE 0.9% IV 1,000 ML 999 ML IV CONT (23:42)
[2020-09-29 23:45] VITALS: PULSE 98; RESP 16; O2SAT 92
--- NOTE | 2020-09-29 23:45 | PC.NURSE ---
Patient's bedside glucose is 129.
[2020-09-29 23:48] LABS: Glucose Point of Care 129 (65-105)
[2020-09-29 23:53] LABS: Basophils Absolute Auto 0.1 K/mm3 (0.0-0.1); Basophils Percent Auto 0.9 % (0.2-1.2); Eosinophils Absolute Auto 0.1 K/mm3 (0-0.3); Eosinophils Percent Auto 0.9 % (0-4.4); Hematocrit 41.2 % (42.0-52.0); Hemoglobin 13.1 g/dL (14.0-18.0); Immature Granulocyte Absolute 0.06 K/mm3 (0.00-0.031); Immature Granulocyte Percent A 0.8 % (0-0.5); Lymphocytes Absolute Auto 2.82 K/mm3 (0.9-3.2); Lymphocytes Percent Auto 35.7 % (18.3-44.2); Mean Corpuscular HGB Conc 31.8 g/dl (32-36); Mean Corpuscular Hemoglobin 26.9 pg (26-34); Mean Corpuscular Volume 84.6 fl (80-100); Mean Platelet Volume 8.2 fl (7.4-10.4); Monocytes Absolute Auto 0.4 K/mm3 (0.1-0.6); Monocytes Percent Auto 4.9 % (2.6-8.5); Neutrophils Absolute Auto 4.5 K/mm3 (1.3-6.7); Neutrophils Percent Auto 56.8 % (45.5-73.1); Platelet Count Result 270 k/mm3 (150-375); Red Blood Count 4.87 M/mm3 (4.6-6.20); Red Cell Distribution Width 15.4 % (11.5-14.5); White Blood Count 7.9 K/mm3 (4.5-10.0)
[2020-09-29 23:55] LABS: Add Urine Microscopic? NO; Appearance Urine Clear (Clear); Bilirubin Urine Negative (Negative); Blood Urine Negative (Negative); Color Urine Colorless (Yellow); Glucose Urine UA Negative (Negative); Ketones Urine Negative (Negative); Leukocyte Esterase Ur Negative LEU/UL (Negative); Nitrate Urine Negative (Negative); Protein Urine Negative (Negative); Urobilinogen Urine Negative mg/dL (<2.0)
[2020-09-29 23:58] LABS: Specific Grav Ur 1.003 (1.001-1.035)
[2020-09-30] VITALS (44 sets, daily range): BP systolic 104–162; BP diastolic 57–103; PULSE 87–106; RESP 11–18; TEMP 36.4–36.5; O2SAT 91–98
[2020-09-30 00:07] LABS: Alanine Aminotransferase 22 U/L (4-50); Albumin Level 4.1 g/dL (3.5-5.1); Alkaline Phosphatase 77 U/L (38-126); Anion Gap 12 mmol/L (8-16); Aspartate Amino Transferase 30 U/L (17-59); Bilirubin,Total 0.3 mg/dL (0.2-1.3); Blood Urea Nitrogen 5 mg/dL (9-20); Calcium 8.5 mg/dL (8.4-10.2); Carbon Dioxide 22 mmol/L (22-30); Chloride 110 mmol/L (98-107); Estimated CRCL calculation 121 ml/min; Estimated Glomerular Filt Rate > 60; Glucose 120 mg/dL (75-110); Potassium 3.9 mmol/L (3.4-5.0); Sodium 144 mmol/L (137-145)
[2020-09-30 00:08] LABS: Acetaminophen < 10 ug/mL (10-30); Ethanol 258 mg/dL (<10); Salicylate < 1.0 mg/dL (2-20)
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
[2020-09-30 00:16] LABS: Amphetamine Screen Urine Negative (Negative); Barbiturate Screen Urine Negative (Negative); Benzodiazepines Screen Urine Negative (Negative); Cannabinoid Screen Urine Negative (Negative); Cocaine Screen Urine Negative (Negative); Methadone Screen Urine Negative (Negative); Opiate Screen Urine Negative (Negative); Phencyclidine Screen Urine Negative (Negative)
--- NOTE | 2020-09-30 00:28 | ED.GENADULT ---
HPI - General Adult General Chief complaint: Recheck/Abnormal Lab/Rx <Ulysses Lloyd MD - Last Filed: 09/30/20 06:54> Stated complaint: took 45 units of humalog <Ulysses Lloyd MD - Last Filed: 09/30/20 06:54> Time Seen by Provider: 09/29/20 23:27 <Ulysses Lloyd MD - Last Filed: 09/30/20 06:54> History of Present Illness HPI narrative: Patient is a 55-year-old gentleman who presents to the emergency department with chief complaint of alcohol intoxication and took 45 units of insulin. Patient states that he has been drinking tonight and wanted to relax so he decided to take his roommates insulin. Patient reports he is not an insulin-dependent diabetic initially reports that he does not want to harm himself but later on expressed that he is scared to go back home and states that he wants to harm his roommate because his roommate has been picking on him. <Ulysses Lloyd MD - Last Filed: 09/30/20 06:54> Related Data Home medications: Home Medications Medication Instructions Recorded Confirmed quetiapine 100 mg PO QAM 05/17/20 09/13/20 venlafaxine 150 mg PO QPM 05/17/20 09/13/20 quetiapine 300 mg PO QPM 09/12/20 09/13/20 <Ulysses Lloyd MD - Last Filed: 09/30/20 06:54> Allergies/adverse reactions: Allergies Allergy/AdvReac Type Severity Reaction Status Date / Time tomato Allergy Severe Anaphylaxis Verified 09/30/20 00:55 <Ulysses Lloyd MD - Last Filed: 09/30/20 06:54> Review of Systems Review of Systems: Narrative: A 10 system review of systems was completed on the patient and is negative except for what is stated in the HPI. Nursing and ancillary documentation was reviewed. <Ulysses Lloyd MD - Last Filed: 09/30/20 06:54> PMFSH Past Medical History Medical History: Medical History Abnormal CT scan, esophagus Acute blood loss anemia Alcohol abuse Alcohol withdrawal Chronic respiratory failure with hypoxia, on home O2 therapy COPD (chronic obstructive pulmonary disease) Depression Sees Dr. Watson at [facility] in [place]. Erosive esophagitis Hematemesis HTN (hypertension), benign Nicotine dependence Normal colonoscopy Done in 2019 at [facility] <Ulysses Lloyd MD - Last Filed: 09/30/20 06:54> Surgical History Surgical History: Surgical History History of cholecystectomy Done in 2019 at [facility] History of right inguinal hernia repair <Ulysses Lloyd MD - Last Filed: 09/30/20 06:54> Family History Family History: Family History Sibling Unknown family medical history States that his blood relative sister has no medical concerns and takes no medicine Other Adopted <Ulysses Lloyd MD - Last Filed: 09/30/20 06:54> Social History Social History: Social History Social History: He lives with a roommate. He has smoked since the age of 14. He smokes 3 packs of cigarettes per day. He has drank alcohol heavily since he was 17. He has drank at least 5-624 oz cans of beer a day and 2 pt of vodka a day. 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 He denies any illicit substance use but his medical record does mention a history of crack cocaine abuse. Smoking packs per day: 3 Smoking cigarettes per day: 60.0 Years smoked: 30 Smoking pack-years: 90.00 Smoking status: Current every day smoker Tobacco type: cigarettes Second hand tobacco smoke exposure: No Alcohol intake: current Drinks per week: 90 Substance use: former Substance use type: does not use Gender identity (if verbalized by the patient): Male Irmaadam
--- NOTE | 2020-09-30 00:43 | PC.NURSE ---
Patient's bedside glucose is 110.
--- NOTE | 2020-09-30 00:53 | PC.NURSE ---
Patient stating he is nauseous. ERP notified.
--- NOTE | 2020-09-30 00:57 | PC.NURSE ---
0054 Contacted poison control, spoke with Amy, pharmacist in regards to patient. She stated she will fax over information and check on patient later.
[2020-09-30] MEDS: ONDANSETRON INJ 4 MG/2 ML VIAL IV PUSH (01:00)
[2020-09-30 01:04] LABS: Thyroid Stimulating Hormone 0.855 uIU/mL (0.465-4.680)
--- NOTE | 2020-09-30 01:45 | PC.NURSE ---
Patient's bedside glucose is 94.
[2020-09-30 01:47] LABS: Glucose Point of Care 94 (65-105)
[2020-09-30 01:47] LABS: Glucose Point of Care 110 (65-105)
--- NOTE | 2020-09-30 02:38 | PC.NURSE ---
Amy calls from Poison control to state that the humalog life is finished and patient should not exhibit any symptoms further. She stated that the patient is cleared at this time from poison control.
--- NOTE | 2020-09-30 02:47 | PC.NURSE ---
Patient's bedside glucose is 111.
[2020-09-30 02:49] LABS: Glucose Point of Care 111 (65-105)
--- NOTE | 2020-09-30 03:57 | PC.NURSE ---
Patient's bedside glucose is 103. VORB to stop hourly glucose checks on patient.
[2020-09-30 03:58] LABS: Glucose Point of Care 103 (65-105)
--- NOTE | 2020-09-30 06:14 | PC.NURSE ---
Per ERP will wait till redraw on patient's alcohol and re evaluate.
--- NOTE | 2020-09-30 08:38 | PC.NURSE ---
order patient breakfast tray
[2020-09-30 08:48] LABS: Ethanol 33 mg/dL (<10)
--- NOTE | 2020-09-30 09:20 | PC.NURSE ---
Evalutated patient now that his ETOH level is under 80, he has scored high risk. Room cleared out, and sitter at bedside
--- NOTE | 2020-09-30 09:24 | PC.NURSE ---
called [facility] to have patient evaluated
--- NOTE | 2020-09-30 11:31 | PC.NURSE ---
lunch ordered for patient
--- NOTE | 2020-09-30 12:18 | PC.NURSE ---
Kim from [facility] states they are unable to take patient.
--- NOTE | 2020-09-30 12:31 | PC.NURSE ---
[facility] from [facility] reports [facility] is waiting for her psychiatrist to call back and will call us as soon as she has further information.
[2020-09-30] MEDS: chlordiazePOXIDE (*CRX) 25 MG CAPSULE PO (13:07)
--- NOTE | 2020-09-30 15:12 | ECG_ITS ---
Measurements Intervals [place] Rate: 91 P: 66 MO: 155 QRS: 68 QRSD: 87 T: 69 QT: 363 QTc: 448 Interpretive Statements SINUS RHYTHM INCOMPLETE RIGHT BUNDLE BRANCH BLOCK BORDERLINE ECG Electronically Signed On 09-30-2020 16:33:09 CDT by Puneet Hinton D.O.
[2020-09-30 15:25] LABS: SARS-CoV-2 RNA PCR Negative
--- NOTE | 2020-09-30 16:00 | PC.NURSE ---
Patient updated that his information has been sent to other facilities. Patient was also told by the marriage and family social worker that he may be at this hospital overnight while seeking placement.
[2020-09-30 19:45] LABS: Glucose Point of Care 121 (65-105)
--- NOTE | 2020-09-30 23:16 | PC.NURSE ---
Report to ongoing RN, Zenon
[2020-09-30] MEDS: QUEtiapine FUMARATE 100 MG TABLET 300 MG PO (23:34)
--- NOTE | 2020-10-01 08:00 | PC.NURSE ---
Pt asked by this RN if pt was still having SI thoughts. Pt states that no he isnt. Pt states all he wants is a cab voucher or bus ticket so he can go home. Pt states he does have a place to live and feels safe there.
[2020-10-01 08:08] VITALS: BP 156/92; PULSE 87; RESP 18; TEMP 36.5; O2SAT 95
[2020-10-01 08:10] LABS: Glucose Point of Care 110 (65-105)
--- NOTE | 2020-10-01 09:43 | PC.NURSE ---
Shannon from [facility] called and states that she is going to start calling around for placement. Shannon states that pt will have to be placed somewhere due to his suicide plan.
--- NOTE | 2020-10-01 11:52 | PC.NURSE ---
Rich from [facility] called to inquire on pt. States he will consult admitting and call us back. Informed charge nurse of this
--- NOTE | 2020-10-01 12:09 | PC.NURSE ---
Flaquita from [facility] and states that they will accept pt. Informed racing secretary and handicapper to call for ride.
--- NOTE | 2020-10-01 12:56 | PC.NURSE ---
i made contact with [facility] and [facility] to transfer patient to [facility] accepted and gave an eta of 023
--- NOTE | 2020-10-01 13:01 | PC.NURSE ---
note corrected eta with [facility] is 1430
[2020-10-01 13:08] VITALS: BP 134/79; PULSE 90; O2SAT 99
[2020-10-01] MEDS: PANTOPRAZOLE 40 MG TABLET PO (13:42)
[2020-10-01] MEDS: QUEtiapine FUMARATE 100 MG TABLET PO (13:43)
[2020-10-01] MEDS: amLODIPine BESYLATE 5 MG TABLET 10 MG PO (13:43)
--- NOTE | 2020-10-01 14:42 | PC.NURSE ---
[facility] has arrived
[2020-10-01 14:57] VITALS: BP 131/102; PULSE 108; RESP 16; TEMP 36.6; O2SAT 97
== END 2020-10-01 15:11 ==
PROVIDERS: Emergency Medicine; General Practice; Emergency Provider Emergency Medicine; PCP Nurse Practitioner Family
DX: R45.851 Suicidal ideations (principal); T38.3X4A Poisoning by insulin and oral hypoglycemic [antidiabetic] drugs, undetermined, initial encounter; F10.120 Alcohol abuse with intoxication, uncomplicated; Y90.8 Blood alcohol level of 240 mg/100 ml or more; Z20.822 Contact with and (suspected) exposure to COVID-19; J96.11 Chronic respiratory failure with hypoxia; F17.210 Nicotine dependence, cigarettes, uncomplicated; Z99.81 Dependence on supplemental oxygen; F32.9 Major depressive disorder, single episode, unspecified; I10 Essential (primary) hypertension; K22.10 Ulcer of esophagus without bleeding; Z79.899 Other long term (current) drug therapy
CPT/HCPCS: 36415; 80053; 80307; 81003; 82948; 84443; 85025; 93005; 96361; 96374; 99285; A9270; C9803; J2405; J7030; U0003; U0005

== ENCOUNTER 2021-03-06 17:56 | Emergency (ER) | payer MEDICARE, MEDICAID, SELFPAY ==
--- NOTE | ~2021-03-06 | XR_ITS ---
EXAMINATION: XR chest 2V DATE: 03/06/2021 19:25 INDICATION: Shortness of breath. TECHNIQUE: Frontal and lateral views of the chest were obtained. COMPARISON: Chest 2 views 09/12/2020, chest CT 09/12/2020 FINDINGS: The lungs are hyperexpanded, consistent with emphysema. Again seen is mild scarring at the lung apices. No pleural effusion or pneumothorax. The heart size is normal. IMPRESSION: 1. Emphysema. 2. Stable mild scarring at the lung apices. Reviewed, dictated and finalized at location A.
--- NOTE | 2021-03-06 17:58 | PC.NURSE ---
pt voiced displeasure that he was placed into the lobby from [facility]. took verbal aggression sign from intake and placed it to the side. pt then asked to be placed near phone where he could call for a ride home.states i [facility] to get here . made aware of dept status and that pts are taken to rooms upon availibility and according to acquity.
[2021-03-06 18:30] VITALS: BP 128/75; PULSE 109; RESP 16; TEMP 36.8; O2SAT 93
--- NOTE | 2021-03-06 18:37 | ECG_ITS ---
Measurements Intervals [place] Rate: 107 P: 72 [place]: 161 QRS: 91 QRSD: 94 T: 75 QT: 347 QTc: 463 Interpretive Statements SINUS TACHYCARDIA RIGHT AXIS DEVIATION INCOMPLETE RIGHT BUNDLE BRANCH BLOCK BASELINE ARTIFACT- I, II, III, AVR, AVL, AVF ABNORMAL ECG Electronically Signed On 03-06-2021 19:06:59 CDT by Puneet Hinton D.O.
--- NOTE | 2021-03-06 18:53 | PC.NURSE ---
pt notified staff he was going outside to smoke. ambulatory without difficulty.
[2021-03-06 18:56] LABS: Basophils Percent Auto 0.4 % (0.2-1.2); Eosinophils Percent Auto 0.4 % (0-4.4); Hematocrit 39.1 % (42.0-52.0); Hemoglobin 12.2 g/dL (14.0-18.0); Immature Granulocyte Percent A 3.6 % (0-0.5); Lymphocytes Absolute Auto 1.99 K/mm3 (0.9-3.2); Mean Corpuscular HGB Conc 31.2 g/dl (32-36); Mean Corpuscular Hemoglobin 25.8 pg (26-34); Mean Corpuscular Volume 82.8 fl (80-100); Mean Platelet Volume 8.3 fl (7.4-10.4); Monocytes Absolute Auto 0.7 K/mm3 (0.1-0.6); Monocytes Percent Auto 5.9 % (2.6-8.5); Neutrophils Percent Auto 71.7 % (45.5-73.1); Platelet Count Result 286 k/mm3 (150-375); Red Blood Count 4.72 M/mm3 (4.6-6.20); Red Cell Distribution Width 16.9 % (11.5-14.5); White Blood Count 11.1 K/mm3 (4.5-10.0)
[2021-03-06 19:06] LABS: Anion Gap 13 mmol/L (8-16); Blood Urea Nitrogen 8 mg/dL (9-20); Carbon Dioxide 24 mmol/L (22-30); Chloride 102 mmol/L (98-107); Estimated CRCL calculation 105 ml/min; Estimated Glomerular Filt Rate > 60; Glucose 133 mg/dL (65-110); Sodium 139 mmol/L (137-145)
--- NOTE | 2021-03-06 20:55 | PC.NURSE ---
pt seen getting into a red truck and leaving the parking lot.
== END 2021-03-06 20:55 | disposition left against medical advice (07) ==
LOC: ANHED 21:02
PROVIDERS: Emergency Provider Family Medicine
DX: R06.02 Shortness of breath (principal)
CPT/HCPCS: 36415; 71046; 80048; 85025; 93005; 99199

== ENCOUNTER 2023-03-29 18:15 | Emergency (ER) | payer MEDICARE, MEDICAID, SELFPAY ==
[2023-03-29] VITALS (16 sets, daily range): BP systolic 119–131; BP diastolic 70–88; PULSE 88–109; RESP 12–21; TEMP 36.2; O2SAT 96–100
--- NOTE | 2023-03-29 19:12 | ED.GENADULT ---
HPI - General Adult General Chief complaint: Unspecified Stated complaint: SOB Time Seen by Provider: 03/29/23 19:09 History of Present Illness HPI narrative: Pt was drinking ETOH and forgot his home O2; has no complaints right now. Related Data Home Medications Medication Instructions Recorded Confirmed quetiapine 100 mg tablet 100 mg PO QAM 05/17/20 09/13/20 venlafaxine 150 mg tablet,extended 150 mg PO QPM 05/17/20 09/13/20 release 24 hr quetiapine 300 mg tablet 300 mg PO QPM 09/12/20 09/13/20 Allergies Allergy/AdvReac Type Severity Reaction Status Date / Time tomato Allergy Severe Anaphylaxis Verified 09/30/20 00:55 Review of Systems Review of Systems: CONST: No fever. HEENT: No sore throat C/V: No chest pain RESP: No cough GI: No abd pain : No dysuria. M/S: No joint pain. SKIN: No rash. NEURO: [No headache or focal numbness or weakness] PSYCH: [No depression] [facility] Past Medical History Medical History Abnormal CT scan, esophagus Acute blood loss anemia Alcohol abuse Alcohol withdrawal Chronic respiratory failure with hypoxia, on home O2 therapy COPD (chronic obstructive pulmonary disease) Depression Sees Dr. Watson at [facility] in [place]. Erosive esophagitis Hematemesis HTN (hypertension), benign Nicotine dependence Normal colonoscopy Done in 2019 at [facility] Surgical History Surgical History History of cholecystectomy Done in 2019 at [facility] History of right inguinal hernia repair Family History Family History Sibling Unknown family medical history States that his blood relative sister has no medical concerns and takes no medicine Other Adopted Social History Social History Social History: He lives with a roommate. He has smoked since the age of 14. He smokes 3 packs of cigarettes per day. He has drank alcohol heavily since he was 17. He has drank at least 5-624 oz cans of beer a day and 2 pt of vodka a day. 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 He denies any illicit substance use but his medical record does mention a history of crack cocaine abuse. Smoking packs per day: 3 Smoking cigarettes per day: 60.0 Years smoked: 30 Smoking pack-years: 90.00 Smoking status: Current every day smoker Tobacco type: cigarettes Second hand tobacco smoke exposure: No Alcohol intake: current Drinks per week: 90 Substance use: former Substance use type: does not use Gender identity (if verbalized by the patient): Male Spiritual care concerns: No Exam Narrative: EXAMINATION OF ORGAN SYSTEMS/BODY AREAS: Constitutional: Vital signs per nursing GENERAL:[No acute distress, non-toxic appearing.] HEAD: Normal with no signs of head trauma. EYES: EOMI, conjunctiva normal ENT: Hearing grossly intact LUNGS: Nonlabored breathing. HEART: [Regular rate and rhythm] ABD: [Soft], nondistended EXT: Normal range of motion SKIN: [No rashes or lesions.] NEURO: [Alert; intoxicated. No gross focal sensory or strength deficits.] PSYCH: Normal affect Course Vital Signs Vital signs: Vital Signs Temperature 97.2 F L 03/29/23 18:22 Pulse Rate 88 03/29/23 18:22 Respiratory Rate 16 03/29/23 18:22 Blood Pressure 131/88 03/29/23 18:22 Pulse Oximetry 96 03/29/23 18:22 Oxygen Delivery Nasal Cannula 03/29/23 18:22 Oxygen Flow Rate 3 03/29/23 18:22 Temperature 97.2 F L 03/29/23 18:22 Pulse Rate 109 H 03/29/23 21:45 Respiratory Rate 17 03/29/23 22:00 Blood Pressure 131/70 03/29/23 19:01 Pulse Oximetry 96 03/29/23 22:00 Oxygen Delivery Nasal Cannula 03/29/23 18:22 Oxygen Flow Rate 3 03/29/23 20
== END 2023-03-29 22:18 | disposition home or self-care (01) ==
PROVIDERS: Emergency Provider Emergency Medicine; PCP Internal Medicine Gastroenterology
DX: F10.129 Alcohol abuse with intoxication, unspecified (principal); J44.9 Chronic obstructive pulmonary disease, unspecified; J96.11 Chronic respiratory failure with hypoxia; I10 Essential (primary) hypertension; F32.A Depression, unspecified; Z99.81 Dependence on supplemental oxygen; Z90.49 Acquired absence of other specified parts of digestive tract; F17.210 Nicotine dependence, cigarettes, uncomplicated; Y90.9 Presence of alcohol in blood, level not specified
CPT/HCPCS: 99284

== ENCOUNTER 2023-07-02 20:44 | Emergency (ER) | payer MEDICARE, MEDICAID, SELFPAY ==
[2023-07-02] VITALS (12 sets, daily range): BP systolic 126–140; BP diastolic 79–94; PULSE 102–107; RESP 12–21; TEMP 36.6; O2SAT 93–98
--- NOTE | ~2023-07-02 | XR_ITS ---
EXAMINATION: XR chest 2V Exam Date/Time: 07/02/2023 22:55 POCKET GRINDER OPERATOR HISTORY: increased shortness of breath Comparison: 03/06/2021. RESULT: Lines, tubes, and devices: None. Lungs and pleura: Clear. Cardiomediastinal silhouette: Stable. Other: No acute osseous or upper abdominal finding. IMPRESSION: No acute cardiopulmonary process. Reviewed, dictated and finalized at location K. ET GRINDER OPERATOR
--- NOTE | ~2023-07-02 | CT_ITS ---
EXAMINATION: CT cervical spine wo con DATE: 07/03/2023 00:48 INDICATION: Neck injury. Head injury. TECHNIQUE: Computed tomography (CT) of the cervical spine was performed without intravenous contrast. Automated exposure control and iterative reconstruction technique were employed. The dose-length pro duct was 517.95 mGy-cm. COMPARISON: None FINDINGS: There is 4 degrees dextrocurvature of cervical spine. Vertebral body heights are normal. Th ere is severely decreased disc height from C4-C5 through C6-C7. The following disc levels are specifi debora discussed: C2-C3: There is mild bilateral uncovertebral joint osteoarthritis. There is severe bilateral facet david int osteoarthritis. There is mild bilateral neural foraminal stenosis. There is no central canal sten osis. C3-C4: There is mild right and severe left uncovertebral joint osteoarthritis. There is severe bilate ral facet joint osteoarthritis. There is mild right and moderate left neural foraminal stenosis. Ther e is mild central canal stenosis. C4-C5: There is moderate right and severe left uncovertebral joint osteoarthritis. There is severe ri ght and moderate left facet joint osteoarthritis. There is mild bilateral neural foraminal stenosis. There is mild central canal stenosis. C5-C6: There is severe bilateral uncovertebral joint osteoarthritis. There is moderate and severe lef t facet joint osteoarthritis. There is mild right and moderate left neural foraminal stenosis. There is mild central canal stenosis. C6-C7: There is severe bilateral uncovertebral joint osteoarthritis. There is mild bilateral facet david int osteoarthritis. There is mild bilateral neural foraminal stenosis. There is moderate central ly l stenosis. C7-T1: There is mild bilateral uncovertebral joint osteoarthritis. There is severe bilateral facet david int osteoarthritis. There is mild bilateral neural foraminal stenosis. There is no central canal sten osis. IMPRESSION: 1. No fracture. 2. Severe cervical spondylosis. Reviewed, dictated and finalized at location A. TRICAL ASSEMBLY SUPERVISOR
--- NOTE | ~2023-07-02 | CT_ITS ---
EXAMINATION: CT brain wo con DATE: 07/03/2023 00:48 INDICATION: Head injury. TECHNIQUE: Computed tomography (CT) of the head was performed without intravenous contrast. The mA wa s adjusted according to patient size. Iterative reconstruction technique was employed. The dose-lengt h product was 681.00 mGy-cm. COMPARISON: Head CT 05/17/2020 FINDINGS: There is no intracranial hemorrhage, acute infarction, or abnormal intracranial mass lesion . The ventricles are normal in size. The orbits are normal. There is an old blowout fracture of media l wall of right orbit. There are old fracture deformities of the nasal bones. The mastoid air cells a re normal. IMPRESSION: 1. Normal brain. Reviewed, dictated and finalized at location A. STANT CORPORATE CONTROLLER IMPRESSION: 1. Normal brain.
--- NOTE | ~2023-07-02 | CT_ITS ---
EXAMINATION: CT chest abdomen pelvis w con DATE: 07/03/2023 00:48 INDICATION: Chest pain. Abdominal pain. TECHNIQUE: Computed tomography (CT) of the chest, abdomen, and pelvis was performed with 100 mL Omnip aque 350 intravenous contrast. Automated exposure control and iterative reconstruction technique were employed. The dose-length product was 1446.78 mGy-cm. COMPARISON: CT 09/12/2020 FINDINGS: CHEST CT: There is mild emphysema. There is mild scarring at the lung apices. There is mild atelectasis bilater ally. There are patchy airspace opacities in right upper lobe. No pleural effusion. The heart size is normal. No pericardial effusion. There are coronary artery calcifications. There is a small sliding hiatal hernia. There is severe cervical spondylosis and moderate thoracic spondylosis. ABDOMEN/PELVIS CT: The liver and spleen are normal. The gallbladder is absent. The pancreas, adrenal glands, and kidneys are normal. There are no dilated loops of bowel. There is diverticulosis of the colon without eviden ce of diverticulitis. The appendix is normal. There is calcified atherosclerosis of the aorta and man y of the other arteries. There are no pathologically enlarged lymph nodes. There is no free intraperi toneal fluid. The prostate is mildly enlarged. There is severe lumbar spondylosis. There are chronic bilateral L4 pars defects. There is 5 mm anterolisthesis of L4 on L5. IMPRESSION: 1. Patchy airspace opacities in right upper lobe, consistent with pneumonia. 2. Mild emphysema. 3. Small sliding hiatal hernia. Reviewed, dictated and finalized at location A. SHOP MANAGER
--- NOTE | 2023-07-02 22:35 | ECG_ITS ---
Measurements Intervals [place] Rate: 102 P: 45 AL: 145 QRS: 68 QRSD: 96 T: 57 QT: 357 QTc: 465 Interpretive Statements SINUS TACHYCARDIA INCOMPLETE RIGHT BUNDLE BRANCH BLOCK COMPARED TO ECG 03/06/2021 18:46:44 NO SIGNIFICANT CHANGES Electronically Signed On 07-03-2023 16:32:37 TIRE MOUNTER by Brian John M.D.
[2023-07-02 22:51] LABS: Basophils Absolute Auto 0.1 K/mm3 (0.0-0.1); Basophils Percent Auto 0.8 % (0.2-1.2); Eosinophils Percent Auto 0.4 % (0-4.4); Hematocrit 39.3 % (42.0-52.0); Hemoglobin 11.7 g/dL (14.0-18.0); Immature Granulocyte Absolute 0.14 K/mm3 (0.00-0.031); Immature Granulocyte Percent A 1.9 % (0-0.5); Lymphocytes Absolute Auto 2.08 K/mm3 (0.9-3.2); Lymphocytes Percent Auto 27.7 % (18.3-44.2); Mean Corpuscular HGB Conc 29.8 g/dl (32-36); Mean Corpuscular Hemoglobin 23.7 pg (26-34); Mean Corpuscular Volume 79.6 fl (80-100); Mean Platelet Volume 8.6 fl (7.4-10.4); Monocytes Absolute Auto 0.6 K/mm3 (0.1-0.6); Neutrophils Absolute Auto 4.6 K/mm3 (1.3-6.7); Neutrophils Percent Auto 61.2 % (45.5-73.1); Platelet Count Result 337 k/mm3 (150-375); Red Blood Count 4.94 M/mm3 (4.6-6.20); Red Cell Distribution Width 17.1 % (11.5-14.5); White Blood Count 7.5 K/mm3 (4.5-10.0)
[2023-07-02 23:03] LABS: Ethanol 281 mg/dL (<10)
[2023-07-02 23:05] LABS: Alanine Aminotransferase 65 U/L (6-50); Albumin Level 4.3 g/dL (3.5-5.1); Alkaline Phosphatase 99 U/L (38-126); Anion Gap 13 mmol/L (8-16); Aspartate Amino Transferase 57 U/L (17-59); Bilirubin,Total 0.6 mg/dL (0.2-1.3); Carbon Dioxide 30 mmol/L (22-30); Chloride 102 mmol/L (98-107); Estimated CRCL calculation 169 ml/min; Estimated Glomerular Filt Rate > 60; Glucose 191 mg/dL (65-110); Sodium 145 mmol/L (137-145)
[2023-07-02 23:08] LABS: Prothrombin Time 13.5 Seconds (11.1-14.7)
[2023-07-02 23:30] LABS: Blood Urea Nitrogen < 2 mg/dL (9-20)
[2023-07-02 23:34] LABS: Anisocytosis 1+ (NORMAL); Hypochromasia 1+ (NORMAL); Platelet Estimate Adequate (Adequate); Schistocytes None Seen (NORMAL)
[2023-07-02] MEDS: methylPREDNISolone SOD SUCC 125 MG VIAL IV PUSH (23:43)
[2023-07-03] VITALS (16 sets, daily range): PULSE 99–113; RESP 12–20; O2SAT 92–99
[2023-07-03] MEDS: ALBUTEROL SULFATE NEB 2.5 MG/3 ML INH INHALATION (00:03)
[2023-07-03] MEDS: IPRATROPIUM BR 0.02% INH SOLN 0.5 MG/2.5 ML VIAL INHALATION (00:03)
[2023-07-03 00:21] LABS: Magnesium 2.2 mg/dL (1.6-2.3)
[2023-07-03 00:22] LABS: Prothrombin Time 13.6 Seconds (11.1-14.7)
[2023-07-03 00:23] LABS: Partial Thromboplastin Time 32.4 SECONDS (22.3-36.8)
[2023-07-03 00:29] LABS: Lactic Acid Reflex 2.8 mmol/L (0.7-2.0)
[2023-07-03 00:31] LABS: NT Pro B Type Natriuretic Pept 100 pg/mL (19.9-100)
[2023-07-03 00:34] LABS: Troponin I < 0.012 ng/mL (0.000-0.034)
[2023-07-03 00:52] LABS: Procalcitonin 0.1 ng/mL
--- NOTE | 2023-07-03 02:21 | PC.NURSE ---
THIS RN ASKED PT TO PROVIDE A URINE SAMPLE. PT STATED I WILL IN A BIT IM SLEEPING . THIS RN STATED THE BENEFITS OF PROVIDING A URINE SAMPLE. PT VERBALIZED UNDERSTANDING AND WENT BACK TO SLEEP.
[2023-07-03 03:07] LABS: Reflex Lactic Acid Yes or No Add Lactic
--- NOTE | 2023-07-03 03:30 | PC.NURSE ---
THIS RN ASKED PT TO PROVIDE A URINE SAMPLE FOR A SECOND TIME. PT VERBALIZED UNDERSTANDING AND STATED HE WOULD TRY BUT WAS STILL TIRED. THIS RN STATED TO PT THE BENEFITS OF PROVIDING A URINE SAMPLE. PT VERBALIZED UNDERSTANDING AND FELL BACK ASLEEP.ED SIPHONER MADE AWARE.
--- NOTE | 2023-07-03 03:52 | ED.GENADULT ---
HPI - General Adult General Chief complaint: Nausea/Vomiting/Diarrhea Stated complaint: N/V this morning Time Seen by Provider: 07/02/23 23:22 History of Present Illness HPI narrative: Patient is a 57-year-old gentleman who presents emergency department with chief complaint of nausea vomiting since this morning. Patient reports he did drink a fair amount of alcohol today and reports that he has discomfort in his abdomen. Patient also reports that he has had increasing shortness of breath patient normally wears 3 L of oxygen via oxygen concentrator. The patient does report that he has history of COPD. The patient also reports that recently he had a fall and landed on his back and could not get up on his own. Related Data Home Medications Medication Instructions Recorded Confirmed quetiapine 100 mg tablet 100 mg PO QAM 05/17/20 09/13/20 venlafaxine 150 mg tablet,extended 150 mg PO QPM 05/17/20 09/13/20 release 24 hr quetiapine 300 mg tablet 300 mg PO QPM 09/12/20 09/13/20 Allergies Allergy/AdvReac Type Severity Reaction Status Date / Time tomato Allergy Severe Anaphylaxis Verified 07/02/23 22:27 Review of Systems Review of Systems: A 10 system review of systems was completed on the patient and is negative except for what is stated in the HPI. Nursing and ancillary documentation was reviewed. [facility] Past Medical History Medical History Abnormal CT scan, esophagus Acute blood loss anemia Alcohol abuse Alcohol withdrawal Chronic respiratory failure with hypoxia, on home O2 therapy COPD (chronic obstructive pulmonary disease) Depression Sees Dr. Watson at [facility] in [place]. Erosive esophagitis Hematemesis HTN (hypertension), benign Nicotine dependence Normal colonoscopy Done in 2019 at [facility] Surgical History Surgical History History of cholecystectomy Done in 2019 at [facility] History of right inguinal hernia repair Family History Family History Sibling Unknown family medical history States that his blood relative sister has no medical concerns and takes no medicine Other Adopted Social History Social History Social History: He lives with a roommate. He has smoked since the age of 14. He smokes 3 packs of cigarettes per day. He has drank alcohol heavily since he was 17. He has drank at least 5-624 oz cans of beer a day and 2 pt of vodka a day. 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 He denies any illicit substance use but his medical record does mention a history of crack cocaine abuse. Smoking packs per day: 3 Smoking cigarettes per day: 60.0 Years smoked: 30 Smoking pack-years: 90.00 Smoking status: Current every day smoker Tobacco type: cigarettes Second hand tobacco smoke exposure: No Alcohol intake: current Drinks per week: 90 Substance use: former Substance use type: does not use Gender identity (if verbalized by the patient): Male Spiritual care concerns: No Exam Narrative: GENERAL: Well-appearing, well-nourished, and in no acute distress. HEAD: Normocephalic, atraumatic. EYES: PERRLA and EOMI. ENT: Nares clear, no rhinorrhea or epistaxis. Mucous membranes moist. NECK: Supple. CHEST: Clear to auscultation. No respiratory distress. HEART: Regular rate and rhythm. No murmur heard. Normal peripheral pulses. ABDOMEN: Soft, nontender, nondistended, normal active bowel sounds. EXTREMITIES: Normal range of motion. No edema. SKIN: Warm, dry, no rash. NEURO: No focal deficits. Alert and oriented x3. PSYCH: Normal mood and affect. Course Vital Signs Vital signs: Vital Signs Temperature 36.6 C 07/02/23 20:52
[2023-07-03 04:40] LABS: Add Urine Microscopic? YES; Appearance Urine Clear (Clear); Bacteria Urine None Seen /hpf; Bilirubin Urine Negative (Negative); Blood Urine Negative (Negative); Color Urine Yellow (Yellow); Glucose Urine UA Negative (Negative); Ketones Urine 1+ mg/dL (Negative); Leukocyte Esterase Ur Negative LEU/UL (Negative); Nitrate Urine Negative (Negative); Non Pathogenic Casts 0-2; Protein Urine Trace mg/dL (Negative); RBC Urine 0-2 /hpf (0-2); Specific Grav Ur 1.069 (1.001-1.035); Squamous Epithelial Cell Urine None seen /hpf (Few); WBC Urine 0-5 /hpf
== END 2023-07-03 06:07 | disposition home or self-care (01) ==
PROVIDERS: Emergency Provider Emergency Medicine; PCP Internal Medicine Gastroenterology
DX: J44.89 Other specified chronic obstructive pulmonary disease (principal); K52.9 Noninfective gastroenteritis and colitis, unspecified; J96.11 Chronic respiratory failure with hypoxia; Z99.81 Dependence on supplemental oxygen; I10 Essential (primary) hypertension; K22.10 Ulcer of esophagus without bleeding; F10.10 Alcohol abuse, uncomplicated; F17.210 Nicotine dependence, cigarettes, uncomplicated; Z90.49 Acquired absence of other specified parts of digestive tract; R06.02 Shortness of breath; Z79.899 Other long term (current) drug therapy; Y90.8 Blood alcohol level of 240 mg/100 ml or more; R00.0 Tachycardia, unspecified; I45.10 Unspecified right bundle-branch block
CPT/HCPCS: 36415; 70450; 71046; 71260; 72125; 74177; 80053; 80307; 81001; 83605; 83735; 83880; 84145; 84484; 85025; 85610; 85730; 93005; 94640; 96374; 99284; J2930; Q9967

== ENCOUNTER 2024-01-23 20:44 | Emergency (ER) | payer MEDICARE, MEDICAID, SELFPAY ==
[2024-01-23] VITALS (17 sets, daily range): BP systolic 103–152; BP diastolic 54–75; PULSE 97–116; RESP 11–26; TEMP 36.4–37.2; O2SAT 93–98
--- NOTE | 2024-01-23 21:00 | ECG_ITS ---
Test Date: 2024-01-23 21:03:23 Measurements Intervals [place] Rate: 99 P: 78 PA: 156 QRS: 79 QRSD: 97 T: 77 QT: 362 QTc: 465 Interpretive Statements SINUS RHYTHM INCOMPLETE RIGHT BUNDLE BRANCH BLOCK BASELINE WANDER- III, V2-V4 BORDERLINE ECG No previous ECG available for comparison Electronically Signed On 01-24-2024 07:24:36 CDT by Puneet Hinton D.O.
[2024-01-23 21:07] LABS: Basophils Percent Auto 0.5 % (0.2-1.2); Eosinophils Percent Auto 0.3 % (0-4.4); Hematocrit 33.5 % (42.0-52.0); Immature Granulocyte Absolute 0.04 K/mm3 (0.00-0.031); Immature Granulocyte Percent A 0.5 % (0-0.5); Lymphocytes Absolute Auto 1.42 K/mm3 (0.9-3.2); Lymphocytes Percent Auto 16.1 % (18.3-44.2); Mean Corpuscular HGB Conc 29.9 g/dl (32-36); Mean Corpuscular Hemoglobin 23.5 pg (26-34); Mean Corpuscular Volume 78.8 fl (80-100); Mean Platelet Volume 8.4 fl (7.4-10.4); Monocytes Absolute Auto 0.6 K/mm3 (0.1-0.6); Monocytes Percent Auto 6.9 % (2.6-8.5); Neutrophils Absolute Auto 6.7 K/mm3 (1.3-6.7); Neutrophils Percent Auto 75.7 % (45.5-73.1); Platelet Count Result 266 k/mm3 (150-375); Red Blood Count 4.25 M/mm3 (4.6-6.20); Red Cell Distribution Width 15.8 % (11.5-14.5); White Blood Count 8.8 K/mm3 (4.5-10.0)
[2024-01-23 21:13] LABS: Appearance Urine Clear (Clear); Bilirubin Urine Negative (Negative); Blood Urine Negative (Negative); Color Urine Yellow (Yellow); Glucose Urine UA Negative (Negative); Ketones Urine Negative (Negative); Leukocyte Esterase Ur Negative LEU/UL (Negative); Nitrate Urine Negative (Negative); Protein Urine Negative (Negative); Specific Grav Ur 1.003 (1.001-1.035); Urobilinogen Urine 0.2 mg/dL (<2.0); pH Urine 6.5 (5.0-9.0)
--- NOTE | 2024-01-23 21:14 | PC.NURSE ---
Patient yelling out and screaming in room, ERP gives VORB to give 5mg haldol IM.
--- NOTE | 2024-01-23 21:19 | ED.GENADULT ---
HPI - General Adult General Chief complaint: Alcohol Stated complaint: ETOH INTOXICATION Time Seen by Provider: 01/23/24 21:18 History of Present Illness HPI narrative: This is a 58-year-old male presenting to ED for alcohol intoxication. Patient states he drinks 17 beers and took some Librium. He wants to go to detox. Patient has no other complaints this time. Related Data Home Medications Medication Instructions Recorded Confirmed quetiapine 100 mg tablet 100 mg PO QAM 05/17/20 09/13/20 venlafaxine 150 mg tablet,extended 150 mg PO QPM 05/17/20 09/13/20 release 24 hr quetiapine 300 mg tablet 300 mg PO QPM 09/12/20 09/13/20 Allergies Allergy/AdvReac Type Severity Reaction Status Date / Time tomato Allergy Severe Anaphylaxis Verified 01/23/24 20:50 [facility] Past Medical History Medical History Abnormal CT scan, esophagus Acute blood loss anemia Alcohol abuse Alcohol withdrawal Chronic respiratory failure with hypoxia, on home O2 therapy COPD (chronic obstructive pulmonary disease) Depression Sees Dr. Watson at [facility] in [place]. Erosive esophagitis Hematemesis HTN (hypertension), benign Nicotine dependence Normal colonoscopy Done in 2019 at [facility] Surgical History Surgical History History of cholecystectomy Done in 2019 at [facility] History of right inguinal hernia repair Family History Family History Sibling Unknown family medical history States that his blood relative sister has no medical concerns and takes no medicine Other Adopted Social History Social History Social History: He lives with a roommate. He has smoked since the age of 14. He smokes 3 packs of cigarettes per day. He has drank alcohol heavily since he was 17. He has drank at least 5-624 oz cans of beer a day and 2 pt of vodka a day. 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 He denies any illicit substance use but his medical record does mention a history of crack cocaine abuse. Smoking packs per day: 3 Smoking cigarettes per day: 60.0 Years smoked: 30 Smoking pack-years: 90.00 Smoking status: Current every day smoker Tobacco type: cigarettes Second hand tobacco smoke exposure: No Alcohol intake: current Drinks per week: 90 Substance use: former Substance use type: does not use Gender identity (if verbalized by the patient): Male Spiritual care concerns: No Exam Narrative: APPEARANCE: No apparent distress. Patient is slurring his speech smells of alcohol Head: atraumatic. EYES: EOMI, NOSE: Atraumatic NECK: Trachea midline RESPIRATORY: No increased rate of breathing, on home oxygen, scattered wheezes CARDIOVASCULAR: RRR, ABDOMINAL: Non-distended MUSCULOSKELETAl: No obvious deformities NEURO: Alert. Moving 4/4 extremities SKIN:: Warm, dry. Normal color PSYCHIATRIC: Normal affect Course Vital Signs Vital signs: Vital Signs Temperature 98.5 F 01/23/24 20:44 Pulse Rate 100 01/23/24 20:44 Respiratory Rate 13 01/23/24 20:44 Blood Pressure 128/64 01/23/24 20:44 Pulse Oximetry 97 01/23/24 20:44 Oxygen Delivery Nasal Cannula 01/23/24 20:44 Oxygen Flow Rate 3 01/23/24 20:44 Temperature 97.2 F L 01/24/24 00:41 Pulse Rate 94 01/24/24 00:45 Respiratory Rate 15 01/24/24 00:45 Blood Pressure 102/63 01/24/24 00:45 Pulse Oximetry 98 01/24/24 00:45 Oxygen Delivery Nasal Cannula 01/23/24 20:44 Oxygen Flow Rate 3 01/23/24 20:44 Medical Decision Making [facility] Narrative Medical decision making narrative: -Course: 58-year-old male presenting ED via ambulance for alcohol intoxication. Patient is verbally abusive with female staff members. He is urinat
[2024-01-23] MEDS: HALOPERIDOL LACTATE 5 MG/ML VIAL IM (21:20)
[2024-01-23 21:22] LABS: Alanine Aminotransferase 15 U/L (6-50); Albumin Level 3.6 g/dL (3.5-5.1); Alkaline Phosphatase 78 U/L (38-126); Anion Gap 14 mmol/L (4-12); Aspartate Amino Transferase 28 U/L (17-59); Bilirubin,Total 0.5 mg/dL (0.2-1.3); Calcium 8.4 mg/dL (8.4-10.2); Carbon Dioxide 26 mmol/L (22-30); Chloride 99 mmol/L (98-107); Estimated CRCL calculation 159 ml/min; Estimated Glomerular Filt Rate > 60; Ethanol 247 mg/dL (<10); Glucose 125 mg/dL (65-110); Potassium 3.1 mmol/L (3.4-5.0); Sodium 139 mmol/L (137-145)
[2024-01-23 21:23] LABS: Platelet Estimate Adequate (Adequate); Schistocytes None Seen
[2024-01-23 21:24] LABS: Hypochromasia 1+
[2024-01-23 21:25] LABS: Microcytosis 1+ (NORMAL)
[2024-01-23] MEDS: LORazepam INJ (*CRX) 2 MG/ML VIAL IM (21:41)
--- NOTE | 2024-01-23 21:45 | PC.NURSE ---
this rn attempted to give halodol IM to patient. pt began thrashing and attempting to hit staff. pt then started yelling racial slurs and using extreme profranity. pt then started to spit on staff. this rn attempted to educate patient on importance of not attempting to become violent with staff. pt started yelling profanities at staff and continuing to hit and scream. Per edp dr. baugh patient to be placed in 4 point hard restraints. ed security assisted with patient. pt refused to calm down. pt then attempted again to hit staff and spit on staff. per edp dr. baugh patient to receive ativan IM. pt iv discontinued due becoming infiltrated.
[2024-01-23 21:47] LABS: Add Urine Microscopic? NO
[2024-01-23 22:14] LABS: Blood Urea Nitrogen < 2 mg/dL (9-20)
[2024-01-23 23:51] LABS: Magnesium 2.1 mg/dL (1.6-2.3)
--- NOTE | 2024-01-24 00:11 | PC.NURSE ---
pt attempting to leave the room. pt removing oxygen. pt requesting to go home. this rn educated patient on importance of staying in the room and keeping oxygen on. edp dr. baugh made aware. pt was able to ambulate with a steady unassisted gait.
[2024-01-24 00:15] VITALS: BP 137/74; RESP 19; O2SAT 97
[2024-01-24 00:16] VITALS: BP 137/74; PULSE 101; RESP 16; TEMP 36.6; O2SAT 95
[2024-01-24 00:30] VITALS: BP 109/60; PULSE 96; RESP 13; O2SAT 96
[2024-01-24 00:41] VITALS: BP 104/71; PULSE 91; RESP 10; TEMP 36.2; O2SAT 100
[2024-01-24 00:45] VITALS: BP 102/63; PULSE 94; RESP 15; O2SAT 98
--- NOTE | 2024-01-24 02:53 | PC.NURSE ---
pt refusing to keep vital equipment on. pt refusing vitals. pt refusing to stay in room. pt refusing to wear oxygen. pt keeps stating, I just want to go home .
[2024-01-24 04:34] VITALS: BP 126/78; PULSE 98; RESP 18; O2SAT 98
== END 2024-01-24 04:40 | disposition home or self-care (01) ==
PROVIDERS: Emergency Provider Emergency Medicine; PCP Internal Medicine Gastroenterology
DX: F10.20 Alcohol dependence, uncomplicated (principal); Y90.8 Blood alcohol level of 240 mg/100 ml or more; R45.6 Violent behavior; J96.11 Chronic respiratory failure with hypoxia; Z99.81 Dependence on supplemental oxygen; J44.9 Chronic obstructive pulmonary disease, unspecified; I10 Essential (primary) hypertension; K22.10 Ulcer of esophagus without bleeding; F32.A Depression, unspecified; F17.210 Nicotine dependence, cigarettes, uncomplicated; Z90.49 Acquired absence of other specified parts of digestive tract; Z79.899 Other long term (current) drug therapy
CPT/HCPCS: 36415; 80053; 80307; 81003; 83735; 85025; 93005; 96372; 99284; J1630; J2060